=== PATIENT | female | born 1990 | race Caucasian/White ===

== ENCOUNTER 2020-03-05 02:13 | Outpatient (CLI) | payer MEDICAID, SELFPAY ==
[2020-03-05 10:59] LABS: ALT 27 U/L (14-59); AST 12 U/L (15-37); Albumin 4.5 g/dL (3.4-5.0); Alkaline Phosphatase 52 U/L (46-116); Anion Gap 9.2 mmol/L (3-11); BUN 15 mg/dL (7-18); Bilirubin, Total 0.5 mg/dL (0.2-1.0); CO2 26.8 mmol/L (21.0-32.0); CREATININE 0.79 mg/dL (0.55-1.02); Calcium 9.7 mg/dL (8.5-10.1); Chloride 102 mmol/L (98-107); Glucose 85 mg/dL (74-106); Potassium 4.3 mmol/L (3.5-5.1); Sodium 138 mmol/L (136-145); TSH (W/Ref FT4) 0.94 uIU/mL (0.36-3.74); Total Protein 7.9 g/dL (6.4-8.2)
[2020-03-08 06:09] LABS: Vitamin D 25 Total 33.8 ng/ml (30-100)
== END 2020-03-05 02:33 ==
PROVIDERS: PCP Family Medicine; Visit Provider Family Medicine
DX: E55.9 Vitamin D deficiency, unspecified (principal); G56.03 Carpal tunnel syndrome, bilateral upper limbs; F32.81 Premenstrual dysphoric disorder; M81.0 Age-related osteoporosis without current pathological fracture
CPT/HCPCS: 36415; 80053; 82306; 84443

== ENCOUNTER 2020-08-25 12:59 | Outpatient (REF) | payer MEDICAID, SELFPAY ==
--- NOTE | 2020-08-25 10:30 | PAPFT_PTH ---
PATIENT: Ree Moran LOC: [facility] U#:[id number] AGE/SX: 30/F ROOM: RE08/25/[address]: Jazlyn Herrera NP : 1990 BED: DIS: 08/25/2020 SPEC #: [id number] RECD: 08/25/20 13:17 STATUS: CHRISTIANO REGuerline #: [id number] NIKOS: 08/25/20 10:[address]: Jazlyn Herrera NP DEPT: [facility] Cytology RECD BY: Rola Zapata ENTERED: 08/25/20 13:18 SP TYPE: PAPFT OTHR DR: Josh Aguirre MD Tissues: 1 - CX/ENDOCX FOR PAP SMEARS Procedures: PAP THIN PREP/UVM Screening HPV DNA PROBE Comments: [id number] (CHLAMYDIA/GC)
[2020-08-26 13:58] LABS: Chlamydia Result Negative (Negative); GC Result Negative (Negative)
== END 2020-08-25 13:00 | disposition home or self-care (01) ==
LOC: LBN 12:59
PROVIDERS: PCP Family Medicine; Visit Provider Nurse Practitioner Women's Health
DX: Z11.3 Encounter for screening for infections with a predominantly sexual mode of transmission (principal); Z12.4 Encounter for screening for malignant neoplasm of cervix; Z11.51 Encounter for screening for human papillomavirus (HPV)
CPT/HCPCS: 87491; 87591; 88142; 87624

== ENCOUNTER 2020-09-23 10:07 | Outpatient (CLI) | payer MEDICAID, SELFPAY ==
--- NOTE | 2020-09-23 07:45 | DI.US_ITS ---
EXAM: US LOWER EXTREMITY VENOUS RT CLINICAL HISTORY: right calf pain, r/o DVT,M79.661 TECHNIQUE: Grayscale, color, and doppler imaging of the deep venous system of the right lower extrem ity was performed. COMPARISON: US ABDOMEN PELVIS ULTRASOUND from 12/15/2015 FINDINGS: There is no evidence of intraluminal thrombus and there is normal compression and augmentation demons trated within the common femoral veis, femoral veis, and popliteal vein. In the ipsilateral calf the interrogated veins also exhibit normal compression/ augmentation properti es. The ipsilateral saphenofemoral junction is patent. IMPRESSION: 1. No evidence of DVT in the right lower extremity. 2. DATA REPOSITORY:
== END 2020-09-23 10:27 ==
PROVIDERS: PCP Family Medicine; Visit Provider Physician Assistant
DX: M79.661 Pain in right lower leg (principal)
CPT/HCPCS: 93971

== ENCOUNTER 2021-01-07 08:53 | Outpatient (CLI) | payer MEDICAID, SELFPAY ==
[2021-01-08 13:23] LABS: COVID-19 RT-PCR UVMMC Result Negative (Negative)
== END 2021-01-07 08:54 | disposition home or self-care (01) ==
PROVIDERS: PCP Nurse Practitioner Family; Visit Provider Nurse Practitioner Family
DX: Z20.822 Contact with and (suspected) exposure to COVID-19 (principal)
CPT/HCPCS: U0003

== ENCOUNTER 2021-07-01 11:36 | Outpatient (CLI) | payer MEDICAID, SELFPAY ==
--- NOTE | 2021-07-01 11:30 | DI.US_ITS ---
Exam(s) US SOFT TISSUE HEAD OR NECK EXAM: US SOFT TISSUE HEAD OR NECK CLINICAL HISTORY: Swelling in right lower cheek worsening, oral infection, K12.2 cellulits. TECHNIQUE: Ultrasound was performed using standard protocol. COMPARISON: No exams were available for comparison FINDINGS: Sonographic assessment utilizing grayscale and color Doppler imaging was performed and targeted to th e area of clinical concern. No abscess is identified. A 9 millimeter reactive lymph node is noted a djacent to the mandible. Other cervical lymph nodes are noted which maintain a normal fatty hilum. IMPRESSION: No evidence of abscess or fluid collection. Reactive lymph nodes. DATA REPOSITORY:
== END 2021-07-01 11:56 ==
PROVIDERS: PCP Nurse Practitioner Family; Visit Provider Nurse Practitioner Family
DX: K12.2 Cellulitis and abscess of mouth (principal); R59.0 Localized enlarged lymph nodes
CPT/HCPCS: 76536

== ENCOUNTER 2021-08-03 15:43 | Outpatient (REF) | payer MEDICAID, SELFPAY ==
[2021-08-03 22:17] LABS: Bilirubin Negative (Negative); Blood Negative (Negative); Clarity Clear (Clear); Glucose Negative (Negative); Ketones Negative (Negative); Leukocyte Esterase Small (Negative); Nitrite Negative (Negative); Urobilinogen 0.2 EU/dL (Up TO 0.2)
[2021-08-03 22:24] LABS: RBC 0-2 HPF (0-2)
[2021-08-03 22:25] LABS: Bacteria Few HPF (Negative); C & S Indicated? No/Sq. Contamination; Casts Negative LPF (Negative); Crystals Negative HPF (Negative); Epithelial Cells Many HPF (Negative); Mucus Negative (Negative); Other Cells Negative (Negative)
== END 2021-08-03 15:44 | disposition home or self-care (01) ==
LOC: LBN 15:43
PROVIDERS: PCP Nurse Practitioner Family; Visit Provider Nurse Practitioner Family
DX: R31.9 Hematuria, unspecified (principal)
CPT/HCPCS: 81003; 81015

== ENCOUNTER 2021-08-04 17:19 | Outpatient (REF) | payer MEDICAID, SELFPAY ==
[2021-08-04 18:42] LABS: Bilirubin Negative (Negative); Blood Trace-intact (Negative); Clarity Clear (Clear); Glucose Negative (Negative); Ketones Negative (Negative); Leukocyte Esterase Trace (Negative); Nitrite Negative (Negative); Urobilinogen 0.2 EU/dL (Up TO 0.2); pH 6.5 (5-8)
[2021-08-04 18:51] LABS: Bacteria Negative HPF (Negative); C & S Indicated? Yes; Casts Negative LPF (Negative); Crystals Negative HPF (Negative); Epithelial Cells Negative HPF (Negative); Mucus Negative (Negative); Other Cells Negative (Negative); RBC Negative HPF (0-2); WBC Negative HPF (0-5)
== END 2021-08-04 17:20 | disposition home or self-care (01) ==
LOC: LBN 17:19
PROVIDERS: PCP Nurse Practitioner Family; Visit Provider Nurse Practitioner Family
DX: R39.9 Unspecified symptoms and signs involving the genitourinary system (principal); R30.0 Dysuria
CPT/HCPCS: 87491; 87591; 81003; 81015; 87086; 87480; 87510; 87660

== ENCOUNTER → 2021-12-09 00:38 | Outpatient (CLI) | payer MEDICAID, SELFPAY | PROVIDERS: PCP Nurse Practitioner Family; Visit Provider Nurse Practitioner Family ==

== ENCOUNTER 2021-12-26 11:20 | Emergency (ER) | payer MEDICAID, SELFPAY ==
[2021-12-26 11:38] VITALS: BP 145/89; PULSE 76; RESP 16; TEMP 36.7; O2SAT 99
[2021-12-26 12:08] LABS: Bilirubin Negative (Negative); Blood Trace-intact (Negative); Clarity Clear (Clear); Glucose Negative (Negative); Ketones Negative (Negative); Leukocyte Esterase Negative (Negative); Nitrite Negative (Negative); Urobilinogen 0.2 EU/dL (Up TO 0.2)
[2021-12-26 12:15] LABS: Bacteria Rare HPF (Negative); C & S Indicated? No; Casts Negative LPF (Negative); Crystals Negative HPF (Negative); Epithelial Cells Moderate HPF (Negative); Mucus Negative (Negative); RBC 0-2 HPF (0-2); WBC Negative HPF (0-5)
--- NOTE | 2021-12-26 12:48 | W.ED.GENAD ---
Discharge Plan Disposition Patient Disposition: HOME Condition: Stable Discharge Details Clinical Impression: Bilateral nephrolithiasis Primary Care Provider: Serafin Guidry ED Provider: Shaniqua Mishra Home Meds and New Rx's Prescriptions: Continued magnesium oxide 400 MG capsule 400 mg PO DAILY cholecalciferol (vitamin D3) [Vitamin D3] 2,000 UNIT capsule 2,000 unit PO DAILY Label Comments: 07-31-17 pt reports that she is no longer taking this med. hb albuterol sulfate [ProAir HFA] 8.5 GM HFA aerosol inhaler 2 puff Inhalation Q4H PRN Qty: 1 0RF fluoxetine 10 mg capsule 10 mg PO QAM Qty: 28 5RF Rx Instructions: take for 14 days PRIOR TO FIRST DAY OF MENSES every month. (14d monthly cycle for PMDD) No Action tamsulosin [Flomax] 0.4 mg capsule 0.4 mg PO DAILY 20 Days Qty: 20 0RF Rx Instructions: stop after passage of stone Discharge Instructions Instructions: Kidney Stones (ED) Additional Instructions: Your ultrasound shows a small, nonobstructing kidney stones once again. Please continue with your magnesium and increase hydration as previously directed by urology. You may continue with Tylenol and/or ibuprofen as needed for discomfort. Please take the Flomax to help with the passage of stone. You may stop this medication once the stone has passed. You are given today's dose) to be due tomorrow. If you develop fever/chills, increased pain, inability stay hydrated please seek care urgently once again. Otherwise, please reach out to urology team in [place] regarding follow up. Referrals: Serafin Guidry, SPECIFICATION WRITER [Primary Care Provider] - Discharge Data Discharge Date/Time-TO BE ENTERED AT DEPARTURE: 12/26/21 16:20 Medical Decision Making Patient is a pleasant 31-year-old female presenting today with chief complaint of dysuria and flank pain. Indicates bilateral flank as areas of discomfort. She reports that this feels similar as she has had multiple UTIs as well as nephrolithiasis historically. States this progressively been worsening over the past 2 days. Patient does try to drink a large amount of water and takes daily magnesium to help prevent stones. She denies any fevers or chills. States that the pain can radiate down towards midline groin. States that she has some nausea but denies any vomiting. No change in bowel habits, normal bowel movement this morning. Patient has had surgical excision of large stone back in 2017. She denies any vaginal discharge. LMP 3 weeks ago. On exam, patient appears uncomfortable. She has bilateral flank discomfort with percussion. Abdomen is benign. Patient is hemodynamically stable. Urinalysis significant for blood in the urine. No indication of infection at this time. Concerned at this time likely for stone. Will obtain renal ultrasound, baseline blood work to evaluate for potential SERINA. Labs reviewed. No leukocytosis. Stable H&H. CMP without significant abnormality, creatinine within normal range. Ultrasound reviewed by radiologist: FINDINGS: Renal size in cm: Right: 12.5 x 3.8 x 5 cm left: 11.6 x 5.1 x 4.7 cm Echogenicity: Normal Hydronephrosis: No Cyst or mass: No Nephrolithiasis: Multiple small echogenic foci bilaterally which may represent artifact versus small stones. Bladder:Normal .? Both ureteral jets were visualized. Prevoid vol: 47 cc Postvoid vol:0 cc IMPRESSION: Bilateral small echogenic renal foci, nonobstructing stones versus artifacts. Labs reviewed. No other significant abnormalities. Discussed the findings with the patient. She does have longstanding plan for her to f/u with urology at [facility]. Encouarged hydration. Pain is improved. She and I discussed strict return precautions. Will have her on Flomax to encourage passage of stone. She is on magnesium supplementation based on previous recommendations from urology. She will continue with this. All of her questions and concerns were addressed, she is in agreement with this plan. [facility] General Date/Time Provider Initiated Documentation: 12/26/21 12:48. Limitations to Documentation: no limitations. Information obtained by: patient and RN notes reviewed. History of Present Illness 31 year old F presents to the emergency department with the chief complaint of dysurea, flank pain, described as moderate and similar to prior episodes, with intensity rated at 6. Quality is described as aching, and is localized to the back and pelvis. Patient reports no radiation. Patient started experiencing this day(s) and it has been constant. No relieving factors improve symptom(s), No exacerbating factors reported . Patient notes no other symptoms.. Patient did receive the following treatments prior to arrival, none Related Data Home Medications Medication Instructions Recorded Confirmed magnesium oxide 400 mg PO DAILY 10/12/16 12/26/21 cholecalciferol (vitamin D3) 50 2,000 unit PO DAILY 07/06/17 12/26/21 mcg (2,000 unit) capsule (Vitamin D3) albuterol sulfate 90 mcg/actuation 2 puff inhalation Q4H PRN ##1 10/01/17 12/26/21 aerosol inhaler (ProAir HFA) fluoxetine 10 mg capsule 10 mg PO QAM #28 caps 02/23/21 12/26/21 tamsulosin 0.4 mg capsule (Flomax) 0.4 mg PO DAILY 20 days #20 caps 12/30/21 Previous Rx's Medication Instructions Recorded albuterol sulfate 90 mcg/actuation 2 puff inhalation Q4H PRN ##1 10/01/17 aerosol inhaler (ProAir HFA) fluoxetine 10 mg capsule 10 mg PO QAM #28 caps 02/23/21 tamsulosin 0.4 mg capsule (Flomax) 0.4 mg PO DAILY 20 days #20 caps 12/30/21 Allergies Allergy/AdvReac Type Severity Reaction Status Date / Time latex Allergy Severe Hives Verified 12/26/21 11:41 Penicillins Allergy Severe Anaphylaxsi Verified 12/26/21 11:41 s shellfish derived Allergy Severe Anaphylaxsi Verified 12/26/21 11:41 s Sulfa (Sulfonamide Allergy Severe Hives Verified 12/26/21 11:41 Antibiotics) nitrofurantoin Allergy Intermediate Skin Rash, Verified 12/26/21 11:41 anxiety, dry mouth General Stated Complaint: Urinary REY: 4 Review of Systems Constitutional Constitutional: Reports as per HPI, Denies chills and Denies fever(s) Cardiovascular Cardiovascular: Denies chest pain Respiratory Respiratory: Denies cough Gastrointestinal Gastrointestinal: Denies abdominal pain, Denies change in bowel habits, Denies nausea and Denies vomiting Genitourinary Genitourinary: Reports as per HPI Musculoskeletal Musculoskeletal: Reports as per HPI Integumentary/Breasts Skin/Breast: Reports as per HPI and Denies rash PFSH All Active Problems (Updated 12/26/21 @ 15:37 by CAROLINA Villalta) Bilateral nephrolithiasis (Acute) Bilateral carpal tunnel syndrome (Acute) PMDD (premenstrual dysphoric disorder) (Acute) H/O surgical procedure (Chronic) a. appendectomy b. colonoscopy c. endometrial biopsy d. tonsillectomy e. EGD - with MAC Obstructive sleep apnea (Chronic) Dx 2017 - [facility] [place] Used CPAP for approx. 1 year - has not used for 1 yr. 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 Nl testosterone and 17-OH-P4. 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 Benign mass on adrenal. Neg pheochromocytoma w/u. 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 Ventura Pruritic condition (Chronic 05/21/14) Vitamin D deficiency (Chronic 07/05/17) Adrenal benign tumor (Chronic) Renal colic (Chronic) Medical History Adrenal benign tumor [address] scan during w/u for elevated DHEAs. Had nl endo w/u at [facility] [place]. Expectant management. Anxiety Panic attacks. Somatic complaints. Dermatitis (07/17/16) Drug-induced nausea and vomiting Dysmenorrhea 2014 Nl pelvic u/s. Nl endometrial bx. Kidney stone on right side Pelvic pain 2014 Episodic. GI w/u neg. 2014 [employer] w/u neg. 11/2015 recurrence of sx after 08/2015. Surgical History Appendectomy Colonoscopy - MAC 06/17/14 [facility] [place] EGD - MAC 06/17/14- [facility] [place] Endometrial Biopsy 08/18/14 [facility] History of appendectomy History of esophagogastroduodenoscopy History of gynecological procedure Status post tonsillectomy Surgery 08/25-kidney stone Tonsillectomy Family History Mother Depression Hyperlipidemia Father Diabetes Essential hypertension Heart disease Hyperlipidemia Maternal Grandfather Diabetes Hyperlipidemia Thyroid cancer Prostate cancer Liver cancer Paternal Grandfather Heart disease Asthma Maternal Grandmother , 73 Essential hypertension Hyperlipidemia Myeloma Bone cancer Paternal Grandmother , 79 Essential hypertension Myeloma Bone cancer Brother Substance abuse Son No problems noted. Son No problems noted. Daughter No problems noted. Social History (Updated 11/28/21 @ 13:55 by April Yan) Smoking/Tobacco Use Status: Never Second Hand Exposure: No Smoking risk assessment performed?: Yes Alcohol Intake: never Drug use: Never Counseling given: No Counseling provided: none Caregiver/Support person: No Household members: spouse and children Housing: house Communication Needs: None Do you need help understanding health information?: Never Pets and animals: Yes Pets and animals: other Details: Chickens Sexually active: Yes Do you think of yourself as: straight/heterosexual Current gender identity: female What is your relationship status?: How often do you talk on the phone with friends or family?: three or more times per week How often do you get together with friends or relatives?: twice per week How often do you attend zoroastrianism or congregation services?: 1-3 times per year Do you belong to any clubs or organized social groups?: no Panel score (0-1 are the most socially isolated patients): 2 What type of physical activity do you participate in: running Duration: 15-30 minutes/day Frequency: 3-4 times per week Vianney/Synagogue: No preference Special vianney needs: No Seatbelt use: always Helmet use: Yes Helmet use: always Drive intox or ride w/intox funeral driver: No Do you feel safe at home: Yes Do you feel safe in your relationship?: Yes Female Reproductive History Menstrual control method: other (partner with vasectomy) History History 4 Para 3 Hx # Term Pregnancies Multiple births Hx # Pregnancies Ectopic pregnancies AB induced Hx Number of Living Children AB spontaneous 1 Exam Const General: cooperative, healthy appearing, uncomfortable, no acute distress, well developed and well groomed Nutritional Appearance: average body habitus and well nourished Orientation: alert and awake Resp Effort & Inspection: normal respiratory effort and no respiratory distress Auscultation: clear to auscultation bilaterally, no rales, no rhonchi and no wheezes Cardio Rate: regular rate Rhythm: regular rhythm Heart Sounds: S1 normal and S2 normal GI Inspection: normal to inspection Palpation: soft, no hepatosplenomegaly, not firm, no guarding, not rigid and nontender Back/Spine/Pelvis Back: CVA tenderness (bilaterally) Skin General skin exam: no rashes or lesions noted Trauma: no lacerations or abrasions Neuro General: patient alert and patient awake Cognition: normal cognition Speech: speech normal Gait: normal gait Psych Appearance: grossly normal and well kempt Mental Status: mental status grossly normal Speech and Movement: speech and movement normal Course Vital Signs Vital signs: Vital Signs Temperature 36.7 C 12/26/21 11:38 Pulse 76 12/26/21 11:38 Respiratory Rate 16 12/26/21 11:38 Blood Pressure 145/89 H 12/26/21 11:38 Pulse Oximetry 99 12/26/21 11:38 Temperature 36.7 C 12/26/21 11:38 Temperature Source Temporal Artery Scan 12/26/21 11:38 Pulse 76 12/26/21 11:38 Respiratory Rate 16 12/26/21 11:38 Respiratory Effort 12/26/21 11:40 Blood Pressure 145/89 H 12/26/21 11:38 Blood Pressure Position Sitting 12/26/21 11:38 Pulse Oximetry 99 12/26/21 11:38 Oxygen Delivery Method Room Air 12/26/21 11:38 Oxygen Flow Rate 0 12/26/21 11:38 Pain Level 6 12/26/21 11:38 Lab/Test Results Lab/Test Results: Laboratory Tests Range/Units 12/26/21 12:00 Urine Color (Yellow) Yellow Urine Clarity (Clear) Clear Urine pH (5-8) 7.0 Ur Specific [place] (1.005-1.025) 1.020 Urine Protein (Negative) mg/dL Negative Urine Ketones (Negative) mg/dL Negative Urine Blood (Negative) Trace-intact H Urine Nitrite (Negative) Negative Urine Bilirubin (Negative) Negative Urine Urobilinogen (Up TO 0.2) EU/dL 0.2 Ur Leukocyte Esterase (Negative) Negative Urine RBC (0-2) HPF 0-2 Urine WBC (0-5) HPF Negative Ur Epithelial Cells (Negative) HPF Moderate Urine Crystals (Negative) HPF Negative Urine Bacteria (Negative) HPF Rare Urine Casts (Negative) LPF Negative Urine Mucus (Negative) Negative Ur Culture Indicated? No Urine Glucose (Negative) mg/dL Negative POC- Test(urine) Negative
--- NOTE | 2021-12-26 13:15 | DI.US_ITS ---
Exam(s) US RENAL EXAM: US RENAL CLINICAL HISTORY: flank pain, dysurea, hematuria. TECHNIQUE: Mckenzie scale, color and spectral Doppler were used. COMPARISON: CT ABD PELVIS WO CONTRAST from 04/27/2017 FINDINGS: Renal size in cm: Right: 12.5 x 3.8 x 5 cm left: 11.6 x 5.1 x 4.7 cm Echogenicity: Normal Hydronephrosis: No Cyst or mass: No Nephrolithiasis: Multiple small echogenic foci bilaterally which may represent artifact versus small stones. Bladder:Normal . Both ureteral jets were visualized. Prevoid vol: 47 cc Postvoid vol:0 cc IMPRESSION: Bilateral small echogenic renal foci, nonobstructing stones versus artifacts. DATA REPOSITORY:
[2021-12-26] MEDS: Ketorolac 15 MG/ML VIAL IVP (14:00)
[2021-12-26] MEDS: Normal Saline 1,000 ML 1000 ML IV (14:00)
[2021-12-26 14:10] LABS: Abs Immature Grans 0.02 10^3/uL (0.0-0.06); Absolute Basophil Count 0.08 10^3/uL (0.0-0.2); Absolute Eosinophil Count 0.09 10^3/uL (0.0-0.7); Absolute Lymphocyte Count 2.26 10^3/uL (1.2-3.4); Absolute Monocyte Count 0.68 10^3/uL (0.1-0.8); Absolute Neutrophil Count 4.87 10^3/uL (1.2-6.7); Eosinophils % 1.1; HCT 38.9 % (36.0-46.0); HGB 13.2 g/dL (11.2-15.7); Immature Grans % 0.3; Lymphocytes % 28.3; MCH 32.2 pg (27.0-33.0); MCHC 33.9 % (32.0-36.0); MCV 95 fL (80-95); Monocytes % 8.5; Neutrophils % 60.8; Platelet Count 317 10^3/uL (130-400); RDW 11.9 % (11.7-14.6); RDW-SD 41.8 fL
[2021-12-26 14:27] LABS: ALT 23 U/L (14-59); AST 13 U/L (15-37); Alkaline Phosphatase 63 U/L (46-116); Anion Gap 7.9 mmol/L (3-11); BUN 11 mg/dL (7-18); Bilirubin, Total 0.6 mg/dL (0.2-1.0); CO2 25.1 mmol/L (21.0-32.0); CREATININE 0.8 mg/dL (0.55-1.02); Calcium 8.9 mg/dL (8.5-10.1); Chloride 104 mmol/L (98-107); Glucose 82 mg/dL (74-106); Potassium 3.5 mmol/L (3.5-5.1); Sodium 137 mmol/L (136-145); Total Protein 7.5 g/dL (6.4-8.2)
[2021-12-26] MEDS: Tamsulosin 0.4 MG CAPCR PO (15:44)
== END 2021-12-26 16:20 | disposition home or self-care (01) ==
PROVIDERS: Emergency Provider Physician Assistant; PCP Nurse Practitioner Family
DX: N20.0 Calculus of kidney (principal); Z87.442 Personal history of urinary calculi
CPT/HCPCS: 36415; 76770; 80053; 81025; 96361; 96374; 99284; 81003; 81015; 85025; 99283; J1885

== ENCOUNTER 2022-05-02 11:04 | Outpatient (CLI) | payer MEDICAID, SELFPAY ==
--- NOTE | 2022-05-02 11:00 | RT.EKG_ITS ---
APPROVED REPORT Exam: Resting ECG Reason for Exam: heart palpatations Patient Location: O HR:66 bpm ECG Measurements Heart Rate 66 AXIS CA 133 P 45 QRSd 90 QRS 55 QT 396 T 12 QTc 415 Conclusion Sinus rhythm...normal P axis, V-rate 50- 99 Normal Electrocardiogram
== END 2022-05-02 11:05 | disposition home or self-care (01) ==
LOC: DI.CM 11:10
PROVIDERS: PCP Nurse Practitioner Family; Visit Provider Nurse Practitioner Family
DX: R00.2 Palpitations (principal)
CPT/HCPCS: 93010

== ENCOUNTER 2022-05-02 13:39 | Outpatient (CLI) | payer MEDICAID, SELFPAY ==
[2022-05-02 14:41] LABS: Calculated LDL 150 mg/dL (<100); Cholesterol 210 mg/dL (<200); HDL Cholesterol 44 mg/dL (40-60); Magnesium 1.7 mg/dL (1.8-2.4); Triglyceride 83 mg/dL (<150)
[2022-05-02 17:00] LABS: Vitamin B12 652 pg/mL (193-986)
[2022-05-02 17:39] LABS: Vitamin D 25 Total 19.8 ng/mL (30-100)
== END 2022-05-02 13:40 | disposition home or self-care (01) ==
LOC: LBO 13:40
PROVIDERS: Nurse Practitioner Family; PCP Nurse Practitioner Family; Visit Provider Nurse Practitioner Family
DX: E55.9 Vitamin D deficiency, unspecified (principal); E27.8 Other specified disorders of adrenal gland; Z13.220 Encounter for screening for lipoid disorders; R00.2 Palpitations
CPT/HCPCS: 36415; 80061; 82306; 82533; 82088; 82607; 83735

== ENCOUNTER 2022-05-19 03:04 | Emergency (ER) | payer MEDICAID, SELFPAY ==
[2022-05-19] VITALS (23 sets, daily range): BP systolic 118–138; BP diastolic 71–82; PULSE 66–93; RESP 11–30; TEMP 37; O2SAT 100
--- NOTE | 2022-05-19 03:00 | RT.EKG_ITS ---
APPROVED REPORT Exam: Resting ECG Reason for Exam: palpitations Patient Location: E HR:93 bpm ECG Measurements Heart Rate 93 AXIS TN 124 P 54 QRSd 87 QRS 52 QT 369 T -7 QTc 460 Conclusion Sinus rhythm...normal P axis, V-rate 60- 99 PHysician: no stemi, unchanged from prior ekg on 05/02/22
--- NOTE | 2022-05-19 03:19 | W.ED.GENAD ---
Discharge Plan Disposition Patient Disposition: Home Condition: Good Discharge Details Chief Complaint: Chest Pain Clinical Impression: Acute hypokalemia, Neck pain on left side Primary Care Provider: Serafin Guidry ED Provider: Flakito Oneill Home Meds and New Rx's Prescriptions: No Action magnesium oxide 400 MG capsule 400 mg PO DAILY cholecalciferol (vitamin D3) [Vitamin D3] 2,000 UNIT capsule 2,000 unit PO DAILY Label Comments: 07-31-17 pt reports that she is no longer taking this med. hb albuterol sulfate [ProAir HFA] 8.5 GM HFA aerosol inhaler 2 puff Inhalation Q4H PRN Qty: 1 0RF fluoxetine 10 mg capsule 10 mg PO QAM Qty: 42 4RF Rx Instructions: take for 14 days PRIOR TO FIRST DAY OF MENSES every month. (14d monthly cycle for PMDD) #42 should be a 90 day supply Discharge Instructions Instructions: Hypokalemia (ED) Additional Instructions: At this time your work-up has returned very reassuring. There is no evidence of significant vascular or heart disease. Your electrolytes do show low potassium. Please stick to a diet that is high in potassium like legumes, bananas, and avocados. Please eat a high-fiber diet to help with your loose stool, and take a daily probiotic as well. If you notice any worsening of your symptoms, or any new symptoms such as vomiting, diarrhea, fever, chills, shortness of breath, chest pain, numbness, weakness, or fainting , please return immediately to the emergency department for reevaluation. Please follow up with your primary care provider as soon as possible for reassessment and reevaluation. As always, it was a pleasure participating in your medical care today. Referrals: Serafin Guidry, FAMILY LAW SPECIALIST [Primary Care Provider] - Medical Decision Making This is a 31-year-old female with a past medical history of an adrenal tumor, magnesium deficiency for which she takes supplementation, who presents today for a few different complaints. Patient states that for the last 3 weeks she has had intermittent palpitations. No syncope, or headache. No chest pain or shortness of breath, they have just been intermittent, and not associated with any new foods, medications, or other things. And then yesterday she developed left-sided neck and arm pain which she describes as a tingling burning electric sensation. Is also present in her left chest. She admits to some nausea and some mild diarrhea but she denies any other component. This evening the pain came back at around 10 PM and is continued throughout the night. She does admit to significant social stressors as her close family member was just life flighted down to [place]. No other complaints at this time. No other modifying factors. Exam demonstrates no carotid bruits, no heart murmurs, radial pulses +2 bilaterally. No neurovascular compromise clinically. Uncertain as to what the exact cause of the patient's symptoms may be at this stage, but electrolyte abnormality, cardiac etiology, no vascular abnormality like vertebral artery dissection or PE is on the differential. We will monitor and evaluate for these etiologies and reassess. 4:28 AM Laboratory work-up has returned, white count stable, electrolytes normal aside for potassium being low at 3.0. This may be related to her diarrhea. D-dimer is elevated at 750. This slightly increases concern for potential vascular component. We will get CTA of the neck and chest. Thyroid function normal, troponin normal, COVID flu and RSV negative. 6:20 AM CTA of the head neck and chest is negative for acute process, dissection of the vertebral artery, or PE. On reassessment patient is feeling better. She is concerned that most of her symptoms are attributed to stress. She feels comfortable and like to go home. Recommend high potassium diet at home, discussed the importance of probiotics. Discussed red flags which to return. At this time no evidence of acute life-threatening etiology requiring further intervention. I have extensively reviewed the treatment plan and discharge instructions with the patient and their family. I have addressed all patient concerns at this time. The patient and family was made aware of what symptoms to monitor for that would warrant a return to the emergency department. Discussed the plan with the patient and family, they demonstrate verbal understanding and agreement with our assessment and plan at this time. The documentation in this chart was dictated using [employer]opt[employer] dictation software. Please excuse any dictation errors. FINDINGS: ANTERIOR CIRCULATION: Right internal carotid artery: Intracranial segment is patent with no significant stenosis or occlusion. No aneurysm. Right middle cerebral artery: No occlusion or significant stenosis. No aneurysm. Right anterior cerebral artery: No occlusion or significant stenosis. No aneurysm. Left internal carotid artery: Intracranial segment is patent with no significant stenosis. No aneurysm. Left middle cerebral artery: No occlusion or significant stenosis. No aneurysm. Left anterior cerebral artery: No occlusion or significant stenosis. No aneurysm. POSTERIOR CIRCULATION: Right vertebral artery: No occlusion or significant stenosis. No aneurysm. Left vertebral artery: No occlusion or significant stenosis. No aneurysm. Basilar artery: No occlusion or significant stenosis. No aneurysm. Right posterior cerebral artery: No occlusion or significant stenosis. No aneurysm. Left posterior cerebral artery: No occlusion or significant stenosis. No aneurysm. Transverse sinuses: Relatively hypoplastic transverse sinus on the left which can be a normal variant. HEAD: Brain: There is maintenance of brain volume without acute hemorrhage or acute territorial infarct. No enhancing lesions in the brain. Venous contamination without venous thrombus. Cerebral ventricles: Normal. No ventriculomegaly. Bones/joints: Unremarkable. No acute fracture. Paranasal sinuses: Visualized sinuses are normal. No fluid levels. Mastoid air cells: Visualized mastoids are normal. No mastoid effusion. Soft tissues: Unremarkable. IMPRESSION: No acute intracranial abnormality. No large vessel occlusion. FINDINGS: Right common carotid artery: No stenosis. No dissection or occlusion. Right internal carotid artery: No stenosis of the extracranial segment. No dissection or occlusion. Right external carotid artery: No occlusion or stenosis of the origin. Left common carotid artery: No stenosis. No dissection or occlusion. Left internal carotid artery: No stenosis of the extracranial segment. No dissection or occlusion. Left external carotid artery: No occlusion or stenosis of the origin. Right vertebral artery: No stenosis. No dissection or occlusion. Left vertebral artery: No stenosis. No dissection or occlusion. Thyroid: Heterogeneous right thyroid lobe with a dominant low-density 20 mm lesion that can be followed non emergently with ultrasound. Lymph nodes: No lymphadenopathy. Soft tissues: Normal. No significant soft tissue swelling. Bones/joints: No acute fracture. Loss of the lordosis suggests spasm. Esophagus: Patulous esophagus. IMPRESSION: No significant vascular abnormality. Thyroid lesions as above. FINDINGS: Pulmonary arteries: No filling defects in the central, lobar, or proximal segmental pulmonary arteries to suggest pulmonary emboli. Normal caliber main pulmonary artery. Aorta: Normal in caliber. Though evaluation of the ascending aorta is limited by cardiac pulsation artifact, there are no findings to suggest aortic dissection. Lungs: There are minimal dependent hypoventilatory changes in both lower lobes. The lungs are otherwise clear and well aerated, without consolidation or mass. The trachea and central main airways are patent and normal in caliber. Pleural spaces: No pleural effusion or pneumothorax. Heart: Heart size is normal. No coronary artery calcifications. No pericardial effusion.Small amount of residual thymic tissue in the anterior/superior mediastinum, not unexpected in a young patient. Lymph nodes: Unremarkable. No pathologically enlarged mediastinal, hilar, or axillary lymph nodes Bones/joints: No suspicious osseous lesions. Soft tissues: Unremarkable. Other findings: Tiny hiatal hernia. IMPRESSION: No acute abnormality in the chest. No evidence of pulmonary emboli. Thank you for allowing us to participate in the care of your patient. Dictated and Authenticated by: Radha Gonzalez MD 05/19/2022 6:12 AM Eastern Time ([place] & [place]) Sign Out No HPI General Date/Time Provider Initiated Documentation: 05/19/22 03:07. HPI Narrative: This is a 31-year-old female with a past medical history of an adrenal tumor, magnesium deficiency for which she takes supplementation, who presents today for a few different complaints. Patient states that for the last 3 weeks she has had intermittent palpitations. No syncope, or headache. No chest pain or shortness of breath, they have just been intermittent, and not associated with any new foods, medications, or other things. And then yesterday she developed left-sided neck and arm pain which she describes as a tingling burning electric sensation. Is also present in her left chest. She admits to some nausea and some mild diarrhea but she denies any other component. This evening the pain came back at around 10 PM and is continued throughout the night. She does admit to significant social stressors as her close family member was just life flighted down to [place]. No other complaints at this time. No other modifying factors. Related Data Home Medications Medication Instructions Recorded Confirmed magnesium oxide 400 mg PO DAILY 10/12/16 05/02/22 cholecalciferol (vitamin D3) 50 2,000 unit PO DAILY 07/06/17 05/02/22 mcg (2,000 unit) capsule (Vitamin D3) albuterol sulfate 90 mcg/actuation 2 puff inhalation Q4H PRN ##1 10/01/17 05/02/22 aerosol inhaler (ProAir HFA) fluoxetine 10 mg capsule 10 mg PO QAM #42 caps 04/03/22 05/02/22 Previous Rx's Medication Instructions Recorded albuterol sulfate 90 mcg/actuation 2 puff inhalation Q4H PRN ##1 10/01/17 aerosol inhaler (ProAir HFA) fluoxetine 10 mg capsule 10 mg PO QAM #42 caps 04/03/22 Allergies Allergy/AdvReac Type Severity Reaction Status Date / Time latex Allergy Severe Hives Verified 05/02/22 11:09 Penicillins Allergy Severe Anaphylaxsi Verified 05/02/22 11:09 s shellfish derived Allergy Severe Anaphylaxsi Verified 05/02/22 11:09 s Sulfa (Sulfonamide Allergy Severe Hives Verified 05/02/22 11:09 Antibiotics) nitrofurantoin Allergy Intermediate Skin Rash, Verified 05/02/22 11:09 anxiety, dry mouth General Stated Complaint: Chest Pain REY: 3 Review of Systems All systems reviewed & are unremarkable except as noted in HPI and below PFSH All Active Problems (Updated 05/19/22 @ 06:22 by Flakito Oneill, ) Acute hypokalemia (Acute) Neck pain on left side (Acute) Impacted cerumen, right ear (Acute) Bilateral carpal tunnel syndrome (Acute) PMDD (premenstrual dysphoric disorder) (Acute) H/O surgical procedure (Chronic) a. appendectomy b. colonoscopy c. endometrial biopsy d. tonsillectomy e. EGD - with [facility] Obstructive sleep apnea (Chronic) Dx 2017 - [facility] [place] Used CPAP for approx. 1 year - has not used for 1 yr. 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 Nl testosterone and 17-OH-P4. 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 Benign mass on adrenal. Neg pheochromocytoma w/u. 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 [place] Pruritic condition (Chronic 05/21/14) Vitamin D deficiency (Chronic 07/05/17) Adrenal benign tumor (Chronic) Renal colic (Chronic) Medical History Adrenal benign tumor [address] scan during w/u for elevated DHEAs. Had nl endo w/u at [facility] [place]. Expectant management. Anxiety Panic attacks. Somatic complaints. Dermatitis (07/17/16) Drug-induced nausea and vomiting Dysmenorrhea 2014 Nl pelvic u/s. Nl endometrial bx. Kidney stone on right side Pelvic pain 2013 Episodic. GI w/u neg. 2014 [place] w/u neg. 11/2015 recurrence of sx after 08/2015. Surgical History Appendectomy Colonoscopy - [facility] 06/17/14 [facility] [place] EGD - MAC 06/17/14- [facility] [place] Endometrial Biopsy 08/18/14 [facility] History of appendectomy History of esophagogastroduodenoscopy History of gynecological procedure Status post tonsillectomy Surgery 08/25-kidney stone Tonsillectomy Family History Mother Depression Hyperlipidemia Father Diabetes Essential hypertension Heart disease Hyperlipidemia Maternal Grandfather Diabetes Hyperlipidemia Thyroid cancer Prostate cancer Liver cancer Paternal Grandfather Heart disease Asthma Maternal Grandmother , 73 Essential hypertension Hyperlipidemia Myeloma Bone cancer Paternal Grandmother , 79 Essential hypertension Myeloma Bone cancer Brother Substance abuse Son No problems noted. Son No problems noted. Daughter No problems noted. Social History Smoking/Tobacco Use Status: Never Second Hand Exposure: No Smoking risk assessment performed?: Yes Alcohol Intake: never Drug use: Never Substance use type: does not use Counseling given: No Counseling provided: none Caregiver/Support person: No Household members: spouse and children Housing: house Communication Needs: None Do you need help understanding health information?: Never Pets and animals: Yes Pets and animals: other Details: Chickens Sexually active: Yes Do you think of yourself as: straight/heterosexual Current gender identity: female What is your relationship status?: How often do you talk on the phone with friends or family?: three or more times per week How often do you get together with friends or relatives?: twice per week How often do you attend jewish or gnosticism services?: 1-3 times per year Do you belong to any clubs or organized social groups?: no Panel score (0-1 are the most socially isolated patients): 2 What type of physical activity do you participate in: running Duration: 15-30 minutes/day Frequency: 3-4 times per week Vianney/Yazdanism: No preference Special vianney needs: No Seatbelt use: always Helmet use: Yes Helmet use: always Drive 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 3.ENT: Atraumatic external nose and ears. Moist MM. Neck: Symmetric, trachea midline, No thyromegaly. 4.CVS: +S1/S2, No murmurs or gallops. Peripheral pulses 2+ and equal in all extremities. Brisk capillary refill in all extremities. 5.RESP: Unlabored respiratory effort. Clear to auscultation bilaterally. No wheezes rales or rhonchi 6.GI: Soft, Nontender/Nondistended, No hepatosplenomegaly. No guarding or rebound. 7.MSK: Normocephalic/Atraumatic, Extremities w/o deformity or ttp No cyanosis or clubbing, Normal movement of all extremities 8.Skin: Warm, Dry. No rashes or lesions. 9.Neuro: salon sales consultant II-XII grossly intact. Sensation grossly intact, no focal neurologic deficits. 10.Psych: (AAO) x3. Appropriate mood and affect Course Vital Signs Vital signs: Vital Signs Temperature 37.0 C 05/19/22 03:09 Pulse 91 H 05/19/22 03:09 Respiratory Rate 18 05/19/22 03:09 Pulse Oximetry 100 05/19/22 03:09 Temperature 37.0 C 05/19/22 03:09 Temperature Source Tympanic 05/19/22 03:09 Pulse 91 H 05/19/22 03:09 Respiratory Rate 18 05/19/22 03:09 Respiratory Effort Non-Labored 05/19/22 03:16 Blood Pressure Position Supine 05/19/22 03:09 Pulse Oximetry 100 05/19/22 03:09 Oxygen Delivery Method Room Air 05/19/22 03:09 Oxygen Flow Rate 0 05/19/22 03:09 Pain Level 7 05/19/22 03:09
[2022-05-19 03:27] LABS: Abs Immature Grans 0.02 10^3/uL (0.0-0.06); Absolute Basophil Count 0.07 10^3/uL (0.0-0.2); Absolute Eosinophil Count 0.34 10^3/uL (0.0-0.7); Absolute Lymphocyte Count 2.77 10^3/uL (1.2-3.4); Absolute Monocyte Count 0.93 10^3/uL (0.1-0.8); Basophils % 0.8; Eosinophils % 3.9; HCT 40.1 % (36.0-46.0); HGB 13.8 g/dL (11.2-15.7); Immature Grans % 0.2; Lymphocytes % 31.7; MCH 32.3 pg (27.0-33.0); MCHC 34.4 % (32.0-36.0); MCV 94 fL (80-95); MPV 10.1 fL (8.0-11.0); Monocytes % 10.7; Neutrophils % 52.7; Platelet Count 354 10^3/uL (130-400); RBC 4.27 10^6/uL (3.93-5.22); RDW-SD 41.8 fL; WBC 8.73 10^3/uL (4.4-10.8)
[2022-05-19] MEDS: Normal Saline 1,000 ML 1000 ML IV (03:33)
[2022-05-19] MEDS: Ketorolac 15 MG/ML VIAL IVP ×2 (03:34→06:19)
[2022-05-19 03:53] LABS: ALT 18 U/L (14-59); AST 12 U/L (15-37); Albumin 4.1 g/dL (3.4-5.0); Alkaline Phosphatase 62 U/L (46-116); Anion Gap 9.9 mmol/L (3-11); BUN 10 mg/dL (7-18); Bilirubin, Total 0.8 mg/dL (0.2-1.0); CO2 26.1 mmol/L (21.0-32.0); CREATININE 0.9 mg/dL (0.55-1.02); Calcium 9.1 mg/dL (8.5-10.1); Chloride 101 mmol/L (98-107); Estimated GFR 87.11 (mL/min/1.73m2); Glucose 104 mg/dL (74-106); Magnesium 1.9 mg/dL (1.8-2.4); Sodium 137 mmol/L (136-145); TSH (W/Ref FT4) 1.34 uIU/mL (0.36-3.74); Total Protein 7.7 g/dL (6.4-8.2); Troponin I < 50 ng/L (<or=60)
--- NOTE | 2022-05-19 04:00 | DI.CT_ITS ---
Exam(s) CT CHEST PE CTA EXAM: CT CHEST PE CTA CLINICAL HISTORY: left chest pain, L neck pain, palpitations. TECHNIQUE: Imaging Protocol: Axial CT angiography was performed with multi-slice acquisition and mu lti-planar and/or 3D reconstructions. CONTRAST MATERIAL: Intravenous: Omnipaque 350 contrast volume:76 mL COMPARISON: CT ABD PELVIS WO CONTRAST from 04/27/2017 FINDINGS: Tracheobronchial tree: Patent where visualized. Pulmonary parenchyma: No consolidation or dominant measurable mass. No architectural distortion. Pulmonary Arteries: No evidence of filling defect to suggest pulmonary emboli. Mediastinum and Cecy: No dominant adenopathy or fluid collection. The esophagus is unremarkable. Visualized thyroid gland: There is a 1.7 cm hypodense nodule in the right lobe of the thyroid gland. Pleura: No effusion or pneumothorax. Heart: The heart is not dilated. No coronary artery calcifications are seen. No pericardial effusion. Aorta: Thoracic aorta non-dilated. No evidence of dissection. Minimal atherosclerosis is present. Upper abdomen: Unremarkable. Soft tissues: Unremarkable. Bones: Within normal limits for the patient's age. IMPRESSION: 1. No evidence of pulmonary embolism, thoracic aortic dissection or aneurysm. 2. 1.7 cm hypodense right thyroid nodule. Nonemergent thyroid ultrasound is recommended for further evaluation. Unexpected findings RADIATION DOSE DELIVERED: 419.74mGy.cm Total DLP DATA REPOSITORY: All CT scans at this facility are submitted to the National Radiology Data Registry (NRDR) Dose Index Registry (DIR) with the [employer] (ACR). RADIATION OPTIMIZATION: All CT scans at this facility use at least one of these dose optimization te chniques: automated exposure control; mA and/or kV adjustment per patient size (includes targeted exa ms where dose is matched to clinical indication); or iterative reconstruction.
--- NOTE | 2022-05-19 04:00 | DI.CT_ITS ---
Exam(s) CT BRAIN NECK CTA EXAM: CT BRAIN NECK CTA CLINICAL HISTORY: left neck pain, r/o dissection. TECHNIQUE: Imaging Protocol: Axial CT angiography was performed with multi-slice acquisition and mu lti-planar and/or 3D reconstructions. CONTRAST MATERIAL: Intravenous: Omnipaque 350 contrast volume:85 mL COMPARISON: CT CT CHEST PE CTA from 05/19/2022 FINDINGS: CT Head W/O and W: Ventricles and Extra axial spaces: Normal in size and morphology for the patient's age. Hemorrhage: None. Cerebral parenchyma: There is no evidence of an acute territorial infarct. Midline shift: None. Brainstem/Cerebellum: Normal. Calvarium: Normal. Visualized Paranasal sinuses/Mastoids: Clear. Soft Tissues: Unremarkable. Enhancement: Unremarkable. CTA Neck W: Common Carotid: Right: No dissection, occlusion or significant stenosis. Left: No dissection, occlusion or significant stenosis. External Carotid: Right: No occlusion or significant stenosis. Left: No occlusion or significant stenosis. Internal Carotid: Right: No dissection, occlusion or significant stenosis. Left: No dissection, occlusion or significant stenosis. Vertebral Artery: Right: No dissection, occlusion or significant stenosis. Left: No dissection, occlusion or significant stenosis. Lung Apices: Normal. Bones: Within normal limits for the patient's age. Soft Tissues: Normal. Thyroid gland: There is a 1.7 cm right thyroid lesion. CTA Brain W: Internal Carotid Arteries: Normal. Anterior Cerebral Arteries: Right: No aneurysm, occlusion or significant stenosis. Left: No aneurysm, occlusion or significant stenosis. Middle Cerebral Arteries: Right: No aneurysm, occlusion or significant stenosis. Left: No aneurysm, occlusion or significant stenosis. Posterior Cerebral Arteries: Right: No aneurysm, occlusion or significant stenosis. Left: No aneurysm, occlusion or significant stenosis. Vertebral Arteries: Right: No aneurysm, occlusion or significant stenosis. Left: No aneurysm, occlusion or significant stenosis. Basilar Artery: No aneurysm, occlusion or significant stenosis. IMPRESSION: 1. No large vessel occlusion or significant stenosis on the CT angiography of the head. 2. No acute intracranial process. 3. No occlusion or significant stenosis on the CT angiography of the neck. RADIATION DOSE DELIVERED: 2,186.71mGy.cm Total DLP DATA REPOSITORY: All CT scans at this facility are submitted to the National Radiology Data Registry (NRDR) Dose Index Registry (DIR) with the [employer] (ACR). RADIATION OPTIMIZATION: All CT scans at this facility use at least one of these dose optimization te chniques: automated exposure control; mA and/or kV adjustment per patient size (includes targeted exa ms where dose is matched to clinical indication); or iterative reconstruction.
[2022-05-19 04:02] LABS: COVID-19 PCR Negative (Negative); Influenza A PCR Negative (Negative); Influenza B PCR Negative (Negative); RSV PCR Negative (Negative)
[2022-05-19 04:03] LABS: Source Nasopharynx
[2022-05-19 04:05] LABS: D-Dimer 751 ng/mlFEU (<500)
[2022-05-19] MEDS: Potassium Chloride 20 MEQ TABCR 40 MEQ PO (04:26)
[2022-05-19] MEDS: POTASSIUM CHLORIDE 10 MEQ/100 ML BAG 100 MEQ IVPB (04:27)
[2022-05-19] MEDS: Normal Saline - Diluent 50 ML VIAL IJ ×2 (04:59→05:16)
[2022-05-19] MEDS: Omnipaque 350 MG/ML 100 ML BTL 85 ML IJ (04:59)
[2022-05-19] MEDS: Omnipaque 350 MG/ML 50 ML BTL IJ (05:15)
--- NOTE | 2022-05-19 05:25 | DI.VRAD_ITS ---
PROCEDURE INFORMATION: Exam: CTA Head Without And With Contrast, Arteriography Exam date and time: 05/19/2022 4:51 AM Age: 31 years old Clinical indication: Stroke-like symptoms; Other: Left neck pain, R/O dissection TECHNIQUE: Imaging protocol: Computed tomographic angiography of the head without and with contrast. Exam focused on the arteries. 3D rendering (Not supervised by radiologist): MIP and/or 3D reconstructed images were created by the technologist. Radiation optimization: All CT scans at this facility use at least one of these dose optimization techniques: automated exposure control; mA and/or kV adjustment per patient size (includes targeted exams where dose is matched to clinical indication); or iterative reconstruction. Contrast material: OMNI 350; Contrast volume: 100 ml; Contrast route: INTRAVENOUS (IV); Other technique: STROKE PROTOCOL was implemented. COMPARISON: US SOFT TISSUE HEAD OR NECK 07/01/2021 11:49 AM FINDINGS: ANTERIOR CIRCULATION: Right internal carotid artery: Intracranial segment is patent with no significant stenosis or occlusion. No aneurysm. Right middle cerebral artery: No occlusion or significant stenosis. No aneurysm. Right anterior cerebral artery: No occlusion or significant stenosis. No aneurysm. Left internal carotid artery: Intracranial segment is patent with no significant stenosis. No aneurysm. Left middle cerebral artery: No occlusion or significant stenosis. No aneurysm. Left anterior cerebral artery: No occlusion or significant stenosis. No aneurysm. POSTERIOR CIRCULATION: Right vertebral artery: No occlusion or significant stenosis. No aneurysm. Left vertebral artery: No occlusion or significant stenosis. No aneurysm. Basilar artery: No occlusion or significant stenosis. No aneurysm. Right posterior cerebral artery: No occlusion or significant stenosis. No aneurysm. Left posterior cerebral artery: No occlusion or significant stenosis. No aneurysm. Transverse sinuses: Relatively hypoplastic transverse sinus on the left which can be a normal variant. HEAD: Brain: There is maintenance of brain volume without acute hemorrhage or acute territorial infarct. No enhancing lesions in the brain. Venous contamination without venous thrombus. Cerebral ventricles: Normal. No ventriculomegaly. Bones/joints: Unremarkable. No acute fracture. Paranasal sinuses: Visualized sinuses are normal. No fluid levels. Mastoid air cells: Visualized mastoids are normal. No mastoid effusion. Soft tissues: Unremarkable. IMPRESSION: No acute intracranial abnormality. No large vessel occlusion. ASSESSMENT: ASPECTS ([place] Stroke Program Early CT Score) is 10. PROCEDURE INFORMATION: Exam: CTA Neck Without And With Contrast Exam date and time: 05/19/2022 4:51 AM Age: 31 years old Clinical indication: Stroke-like symptoms; Other: Left neck pain, R/O dissection TECHNIQUE: Imaging protocol: Computed tomographic angiography of the neck without and with contrast. 3D rendering (Not supervised by radiologist): MIP and/or 3D reconstructed images were created by the technologist. Radiation optimization: All CT scans at this facility use at least one of these dose optimization techniques: automated exposure control; mA and/or kV adjustment per patient size (includes targeted exams where dose is matched to clinical indication); or iterative reconstruction. Contrast material: OMNI 350; Contrast volume: 100 ml; Contrast route: INTRAVENOUS (IV); COMPARISON: US SOFT TISSUE HEAD OR NECK 07/01/2021 11:49 AM FINDINGS: Right common carotid artery: No stenosis. No dissection or occlusion. Right internal carotid artery: No stenosis of the extracranial segment. No dissection or occlusion. Right external carotid artery: No occlusion or stenosis of the origin. Left common carotid artery: No stenosis. No dissection or occlusion. Left internal carotid artery: No stenosis of the extracranial segment. No dissection or occlusion. Left external carotid artery: No occlusion or stenosis of the origin. Right vertebral artery: No stenosis. No dissection or occlusion. Left vertebral artery: No stenosis. No dissection or occlusion. Thyroid: Heterogeneous right thyroid lobe with a dominant low-density 20 mm lesion that can be followed non emergently with ultrasound. Lymph nodes: No lymphadenopathy. Soft tissues: Normal. No significant soft tissue swelling. Bones/joints: No acute fracture. Loss of the lordosis suggests spasm. Esophagus: Patulous esophagus. IMPRESSION: No significant vascular abnormality. Thyroid lesions as above. REFERENCES: NASCET CRITERIA. The degree of stenosis in the cervical segment of the internal carotid artery is based on NASCET criteria. Normal is no stenosis. Mild is less than 50% stenosis. Moderate is 50-69% stenosis. Severe is 70% to 99% stenosis. Total occlusion is no detectable patent lumen. Dictated and Authenticated by: Omid Brandt MD. Ordering:RONEN Fraga MD
--- NOTE | 2022-05-19 06:12 | DI.VRAD_ITS ---
PROCEDURE INFORMATION: Exam: CTA Chest With Contrast Exam date and time: 05/19/2022 5:03 AM Age: 31 years old Clinical indication: Left-sided and other: Left chest pain, L neck pain, palpitations TECHNIQUE: Imaging protocol: Computed tomographic angiography of the chest with contrast. 3D rendering (Not supervised by radiologist): MIP and/or 3D reconstructed images were created by the technologist. Radiation optimization: All CT scans at this facility use at least one of these dose optimization techniques: automated exposure control; mA and/or kV adjustment per patient size (includes targeted exams where dose is matched to clinical indication); or iterative reconstruction. Contrast material: OMNI 350; Contrast volume: 100 ml; Contrast route: INTRAVENOUS (IV); COMPARISON: No relevant prior studies for comparison. FINDINGS: Pulmonary arteries: No filling defects in the central, lobar, or proximal segmental pulmonary arteries to suggest pulmonary emboli. Normal caliber main pulmonary artery. Aorta: Normal in caliber. Though evaluation of the ascending aorta is limited by cardiac pulsation artifact, there are no findings to suggest aortic dissection. Lungs: There are minimal dependent hypoventilatory changes in both lower lobes. The lungs are otherwise clear and well aerated, without consolidation or mass. The trachea and central main airways are patent and normal in caliber. Pleural spaces: No pleural effusion or pneumothorax. Heart: Heart size is normal. No coronary artery calcifications. No pericardial effusion.Small amount of residual thymic tissue in the anterior/superior mediastinum, not unexpected in a young patient. Lymph nodes: Unremarkable. No pathologically enlarged mediastinal, hilar, or axillary lymph nodes. Bones/joints: No suspicious osseous lesions. Soft tissues: Unremarkable. Other findings: Tiny hiatal hernia. IMPRESSION: No acute abnormality in the chest. No evidence of pulmonary emboli. Dictated and Authenticated by: Radha Gonzalez MD. Ordering:RONEN Fraga MD
== END 2022-05-19 14:58 | disposition home or self-care (01) ==
PROVIDERS: Emergency Provider Student in an Organized Health Care Education/Training Program; PCP Nurse Practitioner Family
DX: E87.6 Hypokalemia (principal); M79.602 Pain in left arm; M54.2 Cervicalgia; R79.89 Other specified abnormal findings of blood chemistry; Z20.822 Contact with and (suspected) exposure to COVID-19; Z85.9 Personal history of malignant neoplasm, unspecified
CPT/HCPCS: 70496; 70498; 71275; 80053; 81025; 87637; 93005; 96361; 96374; 96375; 96376; 99285; 83735; 84443; 84484; 85025; 85379; 93010; J1885; J3480; J3490; Q9967

== ENCOUNTER 2022-05-19 14:20 | Emergency (ER) | payer MEDICAID, SELFPAY ==
[2022-05-19 14:27] VITALS: BP 169/86; PULSE 75; RESP 18; TEMP 37; O2SAT 99
--- NOTE | 2022-05-19 14:35 | ED.GENADUL_ITS ---
Discharge Plan Disposition Patient Disposition: Home Condition: Improving Discharge Details Clinical Impression: Nausea, Dizziness and giddiness Primary Care Provider: Serafin Guidry ED Provider: Karen Valenzuela Home Meds and New Rx's Prescriptions: No Action magnesium oxide 400 MG capsule 400 mg PO DAILY cholecalciferol (vitamin D3) [Vitamin D3] 2,000 UNIT capsule 2,000 unit PO DAILY Label Comments: 07-31-17 pt reports that she is no longer taking this med. hb albuterol sulfate [ProAir HFA] 8.5 GM HFA aerosol inhaler 2 puff Inhalation Q4H PRN Qty: 1 0RF fluoxetine 10 mg capsule 10 mg PO QAM Qty: 42 4RF Rx Instructions: take for 14 days PRIOR TO FIRST DAY OF MENSES every month. (14d monthly cycle for PMDD) #42 should be a 90 day supply Discharge Instructions Instructions: Dizziness (ED) Additional Instructions: You may get Dramamine or meclizine [id number]-[id number]. Please take as directed. Take Zofran or ondansetron up to 3 times daily only as needed for nausea 20 to 30 minutes prior to eating or drinking anything. Follow up with primary care provider in 3-5 days. Increase oral fluids. Referrals: Serafin Guidry, [facility] [Primary Care Provider] - 3 days Medical Decision Making Patient given meclizine, Zofran ODT to go, liter of normal saline bolus ordered. Patient had a full complete work-up including a CTA chest labs and a negative fluid swab yesterday at this time I do not feel that patient warrants a repeat work-up. Patient reports feeling much better after the Zofran which was given by EMS. This text was generated using [employer] system, please disregard any oddities of phrase or misspellings. Medical Records Medical records reviewed: Yes I reviewed the patient's medical records. Medical records narrative: Patient seen here earlier this morning had complete labs including a fluvid and a CTA to rule out PE which was negative. Lab Data Lab results reviewed: Yes I reviewed the patient's lab results. Sign Out No HPI General Mode of arrival: ambulatory . Date/Time Provider Initiated Documentation: 05/19/22 14:28 . Limitations to Documentation: no limitations . Information obtained by: patient, EMS, RN notes reviewed and old records reviewed . HPI Narrative: 29-year-old female past medical history obstructive sleep apnea, benign adrenal tumor, anxiety, kidney stones and dysmenorrhea presents to the ER for the second time today with a chief complaint of nausea, dizziness. Patient was seen here and had a complete work-up around 3 AM this morning after being seen for some chest pain she had a negative CTA for elevated D-dimer and was instructed on increasing her potassium which was a low value of 3.0. She reports that she went home tried to rest woke up feeling dizzy and lightheaded. She states that she ate and continue to feel lightheaded. She also reports oncoming of headache or a migraine that she has a history of., She was given 4 mg of Zofran IV per EMS and an INT was started. Related Data Home Medications Medication Instructions Recorded Confirmed magnesium oxide 400 mg PO DAILY 10/12/16 05/02/22 cholecalciferol (vitamin D3) 50 2,000 unit PO DAILY 07/06/17 05/02/22 mcg (2,000 unit) capsule (Vitamin D3) albuterol sulfate 90 mcg/actuation 2 puff inhalation Q4H PRN ##1 10/01/17 05/02/22 aerosol inhaler (ProAir HFA) fluoxetine 10 mg capsule 10 mg PO QAM #42 caps 04/03/22 05/02/22 Previous Rx's Medication Instructions Recorded albuterol sulfate 90 mcg/actuation 2 puff inhalation Q4H PRN ##1 10/01/17 aerosol inhaler (ProAir HFA) fluoxetine 10 mg capsule 10 mg PO QAM #42 caps 04/03/22 Allergies Allergy/AdvReac Type Severity Reaction Status Date / Time latex Allergy Severe Hives Verified 05/02/22 11:09 Penicillins Allergy Severe Anaphylaxsi Verified 05/02/22 11:09 s shellfish derived Allergy Severe Anaphylaxsi Verified 05/02/22 11:09 s Sulfa (Sulfonamide Allergy Severe Hives Verified 05/02/22 11:09 Antibiotics) nitrofurantoin Allergy Intermediate Skin Rash, Verified 05/02/22 11:09 anxiety, dry mouth General Stated Complaint: Abd Prob REY: 3 Review of Systems All systems reviewed & are unremarkable except as noted in HPI and below Constitutional Constitutional: Reports as per HPI and Reports headache(s) ENT Ears, Nose, Mouth, and Throat: Reports dizziness and Reports headache(s) Cardiovascular Cardiovascular: Reports lightheadedness Gastrointestinal Gastrointestinal: Denies abdominal pain, Denies diarrhea, Reports nausea and Denies vomiting Neurologic Neurologic: Reports dizziness and Reports headache(s) PFSH All Active Problems (Updated 05/19/22 @ 15:22 by Karen Valenzuela NP) Acute hypokalemia (Acute) Neck pain on left side (Acute) Nausea (Acute) Dizziness and giddiness (Acute) Impacted cerumen, right ear (Acute) Bilateral carpal tunnel syndrome (Acute) PMDD (premenstrual dysphoric disorder) (Acute) H/O surgical procedure (Chronic) a. appendectomy b. colonoscopy c. endometrial biopsy d. tonsillectomy e. EGD - with MAC Obstructive sleep apnea (Chronic) Dx 2017 - [facility] [place] Used CPAP for approx. 1 year - has not used for 1 yr. 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 Nl testosterone and 17-OH-P4. Eval by [facility] [place] product development assistant. Benign mass on adrenal. Neg pheochromocytoma w/u. 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 Ventura Pruritic condition (Chronic 05/21/14) Vitamin D deficiency (Chronic 07/05/17) Adrenal benign tumor (Chronic) Renal colic (Chronic) Medical History Adrenal benign tumor [address] scan during w/u for elevated DHEAs. Had nl endo w/u at [facility] [place]. Expectant management. Anxiety Panic attacks. Somatic complaints. Dermatitis (07/17/16) Drug-induced nausea and vomiting Dysmenorrhea 2014 Nl pelvic u/s. Nl endometrial bx. Kidney stone on right side Pelvic pain 2014 Episodic. GI w/u neg. 2014 [employer] w/u neg. 11/2015 recurrence of sx after 08/2015. Surgical History Appendectomy Colonoscopy - MAC 06/17/14 [facility] [place] EGD - MAC 06/17/14- [facility] [place] Endometrial Biopsy 08/18/14 [facility] History of appendectomy History of esophagogastroduodenoscopy History of gynecological procedure Status post tonsillectomy Surgery 08/25-kidney stone Tonsillectomy Family History Mother Depression Hyperlipidemia Father Diabetes Essential hypertension Heart disease Hyperlipidemia Maternal Grandfather Diabetes Hyperlipidemia Thyroid cancer Prostate cancer Liver cancer Paternal Grandfather Heart disease Asthma Maternal Grandmother , 73 Essential hypertension Hyperlipidemia Myeloma Bone cancer Paternal Grandmother , 79 Essential hypertension Myeloma Bone cancer Brother Substance abuse Son No problems noted. Son No problems noted. Daughter No problems noted. Social History Smoking/Tobacco Use Status: Never Second Hand Exposure: No Smoking risk assessment performed?: Yes Alcohol Intake: never Drug use: Never Substance use type: does not use Counseling given: No Counseling provided: none Caregiver/Support person: No Household members: spouse and children Housing: house Communication Needs: None Do you need help understanding health information?: Never Pets and animals: Yes Pets and animals: other Details: Chickens Sexually active: Yes Do you think of yourself as: straight/heterosexual Current gender identity: female What is your relationship status?: How often do you talk on the phone with friends or family?: three or more times per week How often do you get together with friends or relatives?: twice per week How often do you attend caodaism or presybeterian services?: 1-3 times per year Do you belong to any clubs or organized social groups?: no Panel score (0-1 are the most socially isolated patients): 2 What type of physical activity do you participate in: running Duration: 15-30 minutes/day Frequency: 3-4 times per week Vianney/Zoroastrian: No preference Special vianney needs: No Seatbelt use: always Helmet use: Yes Helmet use: always Drive intox or ride w/intox otr refrigerated cdl truck driver: No Do you feel safe at home: Yes Do you feel safe in your relationship?: Yes Female Reproductive History Menstrual control method: other History History 4 Para 3 Hx # Term Pregnancies Multiple births Hx # Pregnancies Ectopic pregnancies AB induced Hx Number of Living Children AB spontaneous 1 Exam Narrative Exam Narrative: Constitutional: Alert and oriented x3. Appears stated age. Normal body habitus. Head: Normocephalic, no trauma. Eyes: Pupils PERRL, Red reflex noted, EOM's intact. Eyelids symmetrical without lesions, discharge, or swelling. ENT: Bilateral TM's WNL, External ear normal to inspection, no mastoid TTP, swelling, or erythema, Nasal turbinates WNL, no nasal discharge. Normal dentition, Posterior pharynx WNL, no exudate. Chest: RRR, Normal S1, S2, distal pulses intact. Resp: Lungs clear to auscultation bilaterally, no wheezes, rales, or rhonchi. Abdomen: Soft, non-distended, Normoactive bowel sounds all 4 quads. Musculoskeletal: Normal gait, 5/5 strength to all four extremities. Skin: Slightly pale, no suspicious rashes or lesions. Capillary refill less than 2 sec. Neurologic: Cranial nerves II-XII intact. Alert and oriented x 3. Motor: No deficits noted. Sensory: Intact bilaterally all 4 extremities. Reflexes: DTR's intact bilaterally.. Hematologic/Lymphatic: No ecchymosis, no lymphadenopathy. Course Vital Signs Vital signs: Vital Signs Temperature 37.0 C 05/19/22 14:27 Pulse 75 05/19/22 14:27 Respiratory Rate 18 05/19/22 14:27 Blood Pressure 169/86 H 05/19/22 14:27 Pulse Oximetry 99 05/19/22 14:27 Temperature 37.0 C 05/19/22 14:27 Temperature Source Oral 05/19/22 14:27 Pulse 75 05/19/22 14:27 Respiratory Rate 18 05/19/22 14:27 Blood Pressure 169/86 H 05/19/22 14:27 Pulse Oximetry 99 05/19/22 14:27 Oxygen Delivery Method Room Air 05/19/22 14:27 Oxygen Flow Rate 0 05/19/22 14:27 Pain Level 4 05/19/22 14:27
[2022-05-19] MEDS: Acetaminophen 500 MG TAB PO (14:54)
[2022-05-19] MEDS: Meclizine 25 MG TAB PO (14:54)
[2022-05-19] MEDS: Normal Saline 1,000 ML 1000 ML IV (14:55)
[2022-05-19] MEDS: Ondansetron O.D.T. 4 MG TABEF, 3 TABS/BTL PO (14:58)
== END 2022-05-19 16:14 | disposition home or self-care (01) ==
LOC: ER 16:14
PROVIDERS: Emergency Provider Registered Nurse Emergency; PCP Nurse Practitioner Family
DX: R11.0 Nausea (principal); R42 Dizziness and giddiness
CPT/HCPCS: 81025; 96360; 96361; 96374; 96375; 96376; 99284; 99285; 99283

== ENCOUNTER 2022-06-01 09:14 | Outpatient (RCR) | payer MEDICAID, SELFPAY ==
--- NOTE | 2022-06-01 09:15 | HOLTER_ITS ---
APPROVED REPORT Conclusion This is a 48-hour Holter monitor reportedly ordered for palpitations Rhythm throughout was sinus with an average heart rate of 91. Minimum was 67, maximum 145 There were no atrial or ventricular dysrhythmias recorded There was no atrial fibrillation, no SVT, no high-grade AV block, no pauses greater than 3 seconds There were no apparent patient symptoms
== END 2022-06-10 23:59 | disposition home or self-care (01) ==
LOC: CARDOPNVT 09:14
PROVIDERS: PCP Nurse Practitioner Family; Visit Provider Nurse Practitioner Family
DX: R00.2 Palpitations (principal)
CPT/HCPCS: 93225; 93226

== ENCOUNTER 2022-06-01 10:25 | Outpatient (CLI) | payer MEDICAID, SELFPAY ==
[2022-06-01 10:30] LABS: Anion Gap 7.8 mmol/L (3-11); BUN 11 mg/dL (7-18); CO2 27.2 mmol/L (21.0-32.0); CREATININE 0.8 mg/dL (0.55-1.02); Chloride 104 mmol/L (98-107); Estimated GFR 100.33 (mL/min/1.73m2); Glucose 92 mg/dL (74-106); Magnesium 2.1 mg/dL (1.8-2.4); Potassium 3.9 mmol/L (3.5-5.1); Sodium 139 mmol/L (136-145)
== END 2022-06-01 10:26 | disposition home or self-care (01) ==
LOC: LBO 10:25
PROVIDERS: PCP Nurse Practitioner Family; Visit Provider Family Medicine
DX: E87.6 Hypokalemia (principal); I10 Essential (primary) hypertension
CPT/HCPCS: 36415; 80048; 83735

== ENCOUNTER 2022-06-19 17:19 | Outpatient (REF) | payer MEDICAID, SELFPAY ==
[2022-06-19 20:49] LABS: HCT 41.9 % (36.0-46.0); HGB 14.4 g/dL (11.2-15.7); MCH 32.3 pg (27.0-33.0); MCHC 34.4 % (32.0-36.0); MCV 94 fL (80-95); MPV 11.7 fL (8.0-11.0); Platelet Count 314 10^3/uL (130-400); RBC 4.46 10^6/uL (3.93-5.22); RDW 12.2 % (11.7-14.6); RDW-SD 42.3 fL; WBC 8.32 10^3/uL (4.4-10.8)
[2022-06-19 20:55] LABS: BUN 12 mg/dL (7-18); CREATININE 0.6 mg/dL (0.55-1.02); Calcium 9.7 mg/dL (8.5-10.1); Chloride 104 mmol/L (98-107); Estimated GFR 122.23 (mL/min/1.73m2); Glucose 86 mg/dL (74-106); Magnesium 2.3 mg/dL (1.8-2.4); Potassium 4.2 mmol/L (3.5-5.1); Sodium 140 mmol/L (136-145)
== END 2022-06-19 17:20 | disposition home or self-care (01) ==
LOC: LBN 17:19
PROVIDERS: PCP Nurse Practitioner Family; Visit Provider Nurse Practitioner Family
DX: R30.0 Dysuria (principal); R42 Dizziness and giddiness
CPT/HCPCS: 80048; 85027; 83735; 87480; 87510; 87660

== ENCOUNTER 2022-06-23 12:02 | Emergency (ER) | payer MEDICAID, SELFPAY ==
--- NOTE | 2022-06-23 12:00 | RT.EKG_ITS ---
APPROVED REPORT Exam: Resting ECG Reason for Exam: Dizziness Patient Location: E HR:68 bpm ECG Measurements Heart Rate 68 AXIS TN 131 P 36 QRSd 82 QRS 48 QT 387 T 24 QTc 411 Conclusion Sinus rhythm...normal P axis, V-rate 60- 99 sinus rhythm, normal axis, normal intervals, non ischemic
[2022-06-23 12:08] VITALS: BP 134/75; RESP 69; TEMP 36.9; O2SAT 100
--- NOTE | 2022-06-23 12:45 | DI.CT_ITS ---
Exam(s) CT HEAD WO EXAM: CT HEAD WO CLINICAL HISTORY: Headache, Visual disturbance. TECHNIQUE: Imaging Protocol: Axial computed tomography images with coronal and sagittal reformatted images were created and reviewed COMPARISON: No exams were available for comparison FINDINGS: Ventricles and Extra axial spaces: Normal in size and morphology for the patient's age. Hemorrhage: None. Cerebral parenchyma: Normal. Midline shift: None. Brainstem/Cerebellum: Normal. Calvarium: Normal. Visualized Paranasal sinuses/Mastoids: Clear. Soft Tissues: Unremarkable. IMPRESSION: 1. No acute intracranial process. 2. Findings were discussed with the emergency department at 2:49 p.m. on 06/23/2022. RADIATION DOSE DELIVERED: 842.87mGy.cm Total DLP DATA REPOSITORY: All CT scans at this facility are submitted to the National Radiology Data Registry (NRDR) Dose Index Registry (DIR) with the [employer] (ACR). RADIATION OPTIMIZATION: All CT scans at this facility use at least one of these dose optimization te chniques: automated exposure control; mA and/or kV adjustment per patient size (includes targeted exa ms where dose is matched to clinical indication); or iterative reconstruction.
--- NOTE | 2022-06-23 12:50 | ED.GENADUL_ITS ---
Discharge Plan Disposition Patient Disposition: Home Condition: Stable Discharge Details Clinical Impression: Headache Primary Care Provider: Serafin Guidry ED Provider: Karen Valenzuela Home Meds and New Rx's Prescriptions: New rmwvlxzhsm-ohhpxsxjpxvzu-wnip 50-325-40 mg capsule 1 cap PO Q6H PRN (Reason: pain) 7 Days Qty: 10 0RF Rx Instructions: Take 1 capsule every 6 hours daily as needed for headache. Do not take more than 4 capsules in a 24-hour period. Continued meclizine 25 mg tablet 25 mg PO BID PRN (Reason: dizziness) Qty: 10 0RF Rx Instructions: may take 1 tab every 12 hours as needed for nausea/vertigo magnesium oxide 400 MG capsule 400 mg PO DAILY cholecalciferol (vitamin D3) [Vitamin D3] 2,000 UNIT capsule 2,000 unit PO DAILY Label Comments: 07-31-17 pt reports that she is no longer taking this med. hb fluoxetine 10 mg capsule 10 mg PO QAM Qty: 42 4RF Rx Instructions: take for 14 days PRIOR TO FIRST DAY OF MENSES every month. (14d monthly cycle for PMDD) #42 should be a 90 day supply albuterol sulfate [ProAir HFA] 90 mcg/actuation HFA aerosol inhaler 2 puff Inhalation Q4H PRN Qty: 8.5 3RF Discharge Instructions Instructions: General Headache (ED) Additional Instructions: Take the Fioricet as directed as needed. CT head is within normal limits. Follow up with primary care provider in 3-5 days. Return to ED sooner if any worsening or concerns. Increase oral fluids. Please take Tylenol or Ibuprofen with food every 4-6 hours as needed for pain and swelling. Referrals: Serafin Guidry, [employer] [Primary Care Provider] - 3 days Discharge Data Discharge Date/Time-TO BE ENTERED AT DEPARTURE: 06/23/22 15:19 Medical Decision Making 31-year-old female with past medical history of adrenal benign tumor, anxiety, dysmenorrhea kidney stones presents to the ER with a chief complaint of headache since Sunday. She was seen at [facility] on Sunday and a negative flu and COVID test, had a pelvic exam which was within normal limits. She has had a recent negative Holter monitor exam in May. She was given meclizine at the appointment which she reports is helped with the nausea however the headache has persisted. She describes it as worse at night and worse with position changes, she also describes some intermittent floaters. Dizziness increases when she looks up. No nystagmus noted on exam. Negative hints exam. She denies any fever chills no neck pain. Head CT negative, CMP largely within normal limits, IV was unable to be established by staff development nurse. Meds were given PO. Differential diagnosis includes but not limited to migraine, tension headache, intracranial mass, URI, sinusitis. Will send patient home with Fioricet. CT within normal limits, CMP also within normal limits. CBC was unable to be obtained by lab director of designstaff development nurse. Patient received Benadryl p.o. and Zofran ODT while here. She was also given a tablet of Fioricet. Discussed tricked return instructions follow-up care, verbalized understanding. This text was generated using [employer] dictation system, please disregard any oddities of phrase or misspellings. Lab Data Lab results reviewed: Yes I reviewed the patient's lab results. Labs: Laboratory Tests Range/Units 06/23/22 06/23/22 13:12 13:58 Sodium (136-145) mmol/L 138 Potassium (3.5-5.1) mmol/L 4.7 Chloride (98-107) mmol/L 105 Carbon Dioxide (21.0-32.0) mmol/L 19.6 L Anion Gap (3-11) mmol/L 13.4 H BUN (7-18) mg/dL 12 Creatinine (0.55-1.02) mg/dL < 0.2 L Est GFR (CKD-EPI 2020) (mL/min/1.73m2) 159.28 Glucose (74-106) mg/dL 86 Calcium (8.5-10.1) mg/dL 9.4 Total Bilirubin (0.2-1.0) mg/dL 0.6 AST (15-37) U/L 26 ALT (14-59) U/L 19 Alkaline Phosphatase (46-116) U/L 67 Total Protein (6.4-8.2) g/dL 8.2 Albumin (3.4-5.0) g/dL 4.2 COVID-19 Source Nasal/Nares SARS-CoV-2 (PCR) (Negative) Negative HPI General Mode of arrival: ambulatory . Date/Time Provider Initiated Documentation: 06/23/22 12:04 . Limitations to Documentation: no limitations . Information obtained by: patient, RN notes reviewed and old records reviewed . HPI Narrative: 31-year-old female with past medical history of adrenal benign tumor, anxiety, dysmenorrhea kidney stones presents to the ER with a chief complaint of headache since Sunday. She was seen at [facility] on Sunday and a negative flu and COVID test, had a pelvic exam which was within normal limits. She has had a recent negative Holter monitor exam in May. She was given meclizine at the appointment which she reports is helped with the nausea however the headache has persisted. She describes it as worse at night and worse with position changes, she also describes some intermittent floaters. Dizziness increases when she looks up. No nystagmus noted on exam. Negative hints exam. She denies any fever chills no neck pain. She does endorse slight sore throat. Denies any vomiting diarrhea or any other associated symptoms. Denies any recent head trauma. Related Data Home Medications Medication Instructions Recorded Confirmed magnesium oxide 400 mg PO DAILY 10/12/16 06/23/22 cholecalciferol (vitamin D3) 50 2,000 unit PO DAILY 07/06/17 06/23/22 mcg (2,000 unit) capsule (Vitamin D3) fluoxetine 10 mg capsule 10 mg PO QAM #42 caps 04/03/22 06/23/22 albuterol sulfate 90 mcg/actuation 2 puff inhalation Q4H PRN #8.5 05/29/22 06/23/22 aerosol inhaler (ProAir HFA) grams meclizine 25 mg tablet 25 mg PO BID PRN dizziness #10 tabs 06/19/22 06/23/22 ufjokbcnys-ociqgtolfujao-ypbdzkad 1 cap PO Q6H PRN pain 7 days #10 06/23/22 50 mg-325 mg-40 mg capsule caps Previous Rx's Medication Instructions Recorded fluoxetine 10 mg capsule 10 mg PO QAM #42 caps 04/03/22 albuterol sulfate 90 mcg/actuation 2 puff inhalation Q4H PRN #8.5 05/29/22 aerosol inhaler (ProAir HFA) grams meclizine 25 mg tablet 25 mg PO BID PRN dizziness #10 tabs 06/19/22 aqrhbofndx-wvmcuzqnyjkcz-tbfhmbxo 1 cap PO Q6H PRN pain 7 days #10 06/23/22 50 mg-325 mg-40 mg capsule caps Allergies Allergy/AdvReac Type Severity Reaction Status Date / Time latex Allergy Severe Hives Verified 06/23/22 12:18 Penicillins Allergy Severe Anaphylaxsi Verified 06/23/22 12:18 s shellfish derived Allergy Severe Anaphylaxsi Verified 06/23/22 12:18 s Sulfa (Sulfonamide Allergy Severe Hives Verified 06/23/22 12:18 Antibiotics) nitrofurantoin Allergy Intermediate Skin Rash, Verified 06/23/22 12:18 anxiety, dry mouth General Stated Complaint: Headache REY: 4 Review of Systems All systems reviewed & are unremarkable except as noted in HPI and below PFSH All Active Problems (Updated 06/23/22 @ 15:02 by Karen Valenzuela NP) Headache (Acute) Vaginal irritation (Acute) Calculus of kidney (Chronic) Impacted cerumen, right ear (Acute) Bilateral carpal tunnel syndrome (Acute) PMDD (premenstrual dysphoric disorder) (Acute) H/O surgical procedure (Chronic) a. appendectomy b. colonoscopy c. endometrial biopsy d. tonsillectomy e. EGD - with MAC Obstructive [place] (Chronic) [place] [facility] [place] for approx. 1 year - has not used for 1 yr. 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 Nl testosterone and 17-OH-P4. [place] [facility] [place]. Benign mass on adrenal. Neg pheochromocytoma w/u. 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 Pruritic condition (Chronic 05/21/14) Vitamin D deficiency (Chronic 07/05/17) Adrenal benign tumor (Chronic) Renal colic (Chronic) Medical History Adrenal benign tumor [address] scan during w/u for elevated DHEAs. [place] [facility] [place] Expectant management. Anxiety Panic attacks. Somatic complaints. Dermatitis (07/17/16) Drug-induced nausea and vomiting Dysmenorrhea 2014 Nl pelvic u/s. Nl endometrial bx. Kidney stone on right side Pelvic pain 2014 Episodic. GI w/u neg. 2014 Sports Doctor w/u neg. 11/2015 recurrence of sx after 08/2015. Surgical History Appendectomy [place]oscopy - [facility] [place]17[place] [facility] [place]17[place] [facility] [place]18[place]14 [facility] History of appendectomy History of esophagogastroduodenoscopy History of gynecological procedure Status post tonsillectomy Surgery 08/25-kidney stone Tonsillectomy Family History Mother Depression Hyperlipidemia Father Diabetes Essential hypertension Heart disease Hyperlipidemia Maternal Grandfather Diabetes Hyperlipidemia Thyroid cancer Prostate cancer Liver cancer Paternal Grandfather Heart disease Asthma Maternal Grandmother , 73 Essential hypertension Hyperlipidemia Myeloma Bone cancer Paternal Grandmother , 79 Essential hypertension Myeloma Bone cancer Brother Substance abuse Son No problems noted. Son No problems noted. Daughter No problems noted. Social History Smoking/Tobacco Use Status: Current-Occasional Tobacco Type: cigarettes Second Hand Exposure: No Smoking risk assessment performed?: Yes Alcohol Intake: never Drug use: Never Substance use type: does not use Counseling given: No Counseling provided: none Caregiver/Support person: No Household members: spouse and children Housing: house Communication Needs: None Do you need help understanding health information?: Never Pets and animals: Yes Pets and animals: other Details: Chickens Sexually active: Yes Do you think of yourself as: straight/heterosexual Current gender identity: female What is your relationship status?: How often do you talk on the phone with friends or family?: three or more times per week How often do you get together with friends or relatives?: twice per week How often do you attend voodoo or christian services?: 1-3 times per year Do you belong to any clubs or organized social groups?: no Panel score (0-1 are the most socially isolated patients): 2 What type of physical activity do you participate in: running Duration: 15-30 minutes/day Frequency: 3-4 times per week Vianney/Protestant: No preference Special vianney needs: No Seatbelt use: always Helmet use: Yes Helmet use: always Drive intox or ride w/intox vending route driver: No Do you feel safe at home: Yes Do you feel safe in your relationship?: Yes Female Reproductive History Menstrual control method: other History History 4 Para 3 Hx # Term Pregnancies Multiple births Hx # Pregnancies Ectopic pregnancies AB induced Hx Number of Living Children AB spontaneous 1 Exam Narrative Exam Narrative: Constitutional: Alert and oriented x3. Appears stated age. Normal body habitus. Head: Normocephalic, no trauma. Eyes: Pupils PERRL, Red reflex noted, EOM's intact. Eyelids symmetrical without lesions, discharge, or swelling. ENT: Bilateral TM's WNL, External ear normal to inspection, no mastoid TTP, swelling, or erythema, Nasal turbinates WNL, no nasal discharge. Normal dentition, Posterior pharynx WNL, no exudate. Chest: RRR, Normal S1, S2, distal pulses intact. Resp: Lungs clear to auscultation bilaterally, no wheezes, rales, or rhonchi. Abdomen: Soft, non-distended, Normoactive bowel sounds all 4 quads. Musculoskeletal: Normal gait, 5/5 strength to all four extremities. Skin: No suspicious rashes or lesions. Capillary refill less than 2 sec. Neurologic: Cranial nerves II-XII intact. Alert and oriented x 3. Motor: No deficits noted. Sensory: Intact bilaterally all 4 extremities. Reflexes: DTR's intact bilaterally.. Hematologic/Lymphatic: No ecchymosis, no lymphadenopathy. Course Vital Signs Vital signs: Vital Signs Temperature 36.9 C 06/23/22 12:08 Respiratory Rate 69 H 06/23/22 12:08 Blood Pressure 134/75 06/23/22 12:08 Pulse Oximetry 100 06/23/22 12:08 Temperature 36.9 C 06/23/22 12:08 Temperature Source Skin 06/23/22 12:08 Respiratory Rate 69 H 06/23/22 12:08 Respiratory Effort 06/23/22 12:13 Blood Pressure 134/75 06/23/22 12:08 Blood Pressure Position Sitting 06/23/22 12:08 Pulse Oximetry 100 06/23/22 12:08 Oxygen Delivery Method Room Air 06/23/22 12:08 Oxygen Flow Rate 0 06/23/22 12:08 Pain Level 7 06/23/22 12:08
[2022-06-23 13:17] LABS: Source Nasal/Nares
[2022-06-23] MEDS: diphenhydrAMINE 25 MG CAP PO (13:44)
[2022-06-23] MEDS: Ondansetron O.D.T. 4 MG TABEF PO (13:45)
[2022-06-23 13:48] LABS: COVID-19 PCR Negative (Negative)
[2022-06-23 14:28] LABS: Albumin 4.2 g/dL (3.4-5.0); Alkaline Phosphatase 67 U/L (46-116); BUN 12 mg/dL (7-18); Bilirubin, Total 0.6 mg/dL (0.2-1.0); CREATININE < 0.2 mg/dL (0.55-1.02); Calcium 9.4 mg/dL (8.5-10.1); Chloride 105 mmol/L (98-107); Estimated GFR 159.28 (mL/min/1.73m2); Glucose 86 mg/dL (74-106); Potassium 4.7 mmol/L (3.5-5.1); Sodium 138 mmol/L (136-145); Total Protein 8.2 g/dL (6.4-8.2)
[2022-06-23 14:29] LABS: ALT 19 U/L (14-59); AST 26 U/L (15-37); Anion Gap 13.4 mmol/L (3-11); CO2 19.6 mmol/L (21.0-32.0)
[2022-06-23] MEDS: Butalbital/Acetaminophen/Caffeine 50/325/40 TAB PO (14:38)
[2022-06-23 15:10] VITALS: BP 130/68; PULSE 72; RESP 16; TEMP 36.8; O2SAT 100
== END 2022-06-23 15:19 | disposition home or self-care (01) ==
PROVIDERS: Emergency Provider Registered Nurse Emergency; PCP Nurse Practitioner Family
DX: R51.9 Headache, unspecified (principal); Z20.822 Contact with and (suspected) exposure to COVID-19
CPT/HCPCS: 80053; 81025; 87635; 93005; 96365; 99284; 70450; 85025; 93010; 99285

== ENCOUNTER 2022-07-20 09:40 | Emergency (ER) | payer MEDICAID, SELFPAY ==
[2022-07-20 09:55] VITALS: BP 112/64; PULSE 73; RESP 16; TEMP 36.5; O2SAT 98
--- NOTE | 2022-07-20 10:12 | DI.CT_ITS ---
Exam(s) CT NECK W EXAM: CT NECK W INDICATION: ?abscess. COMPARISON: CT CT BRAIN NECK CTA from 05/19/2022 TECHNIQUE: IV contrast: 100 mL Omnipaque 350 FINDINGS: NASOPHARYNX: Unremarkable. OROPHARYNX: Unremarkable. No masses evident. No evidence of tonsillar abscess. REGINE DENTAL: Unremarkable. HYPOPHARYNX: Unremarkable. Valleculae and epiglottis and aryepiglottic folds appear normal. VOCAL CORDS: Unremarkable. No masses THYROID GLAND: Abnormal. There is abnormal enlargement of the right thyroid lobe with a 2 cm x 1.5 c m x 3 cm (craniocaudal) nodule or fluid collection within the right thyroid lobe. Isthmus appears un remarkable. No adjacent adenopathy. SALIVARY GLANDS: Unremarkable. No significant findings in the parotid and submandibular glands. LYMPH NODES: There is no prominent adenopathy evident in the neck and supraclavicular regions. OTHER: Minimal mucosal thickening in the right maxillary sinus. No fluid level. VISUALIZED LUNG APICES: No significant findings. OSSEOUS: No fractures. No significant osseous lesions. IMPRESSION: 1. No evidence of tonsillar abscess. No lymphadenopathy in the neck. 2. However, there is abnormal enlargement of the right thyroid lobe and this contains what is either irregular hypodense nodule or fluid collection measuring 2 x 1.5 x 3 cm. Discussed by myself with the ER physician. RADIATION DOSE DELIVERED: 434.52mGy.cm Total DLP 434.52mGy.cm Total DLP DATA REPOSITORY: All CT scans at this facility are submitted to the National Radiology Data Registry (NRDR) Dose Index Registry (DIR) with the [employer] (A[employer]). RADIATION OPTIMIZATION: All CT scans at this facility use at least one of these dose optimization te chniques: automated exposure control; mA and/or kV adjustment per patient size (includes targeted exa ms where dose is matched to clinical indication); or iterative reconstruction.
--- NOTE | 2022-07-20 10:20 | ED.GENADUL_ITS ---
Discharge Plan Disposition Patient Disposition: Home Condition: Stable Discharge Details Clinical Impression: Pain in throat, Neck pain Primary Care Provider: Serafin Guidry ED Provider: Aldair Herrera Home Meds and New Rx's Prescriptions: Continued meclizine 25 mg tablet 25 mg PO BID PRN (Reason: dizziness) Qty: 10 0RF Rx Instructions: may take 1 tab every 12 hours as needed for nausea/vertigo rizatriptan [Maxalt-[employer]] 10 mg tablet,disintegrating 10 mg PO ONCE PRN (Reason: migraine headache) Qty: 10 0RF Rx Instructions: may repeat once after at least 2 hours magnesium oxide 400 MG capsule 400 mg PO DAILY cholecalciferol (vitamin D3) [Vitamin D3] 2,000 UNIT capsule 2,000 unit PO DAILY Patient Comments: 07-31-17 pt reports that she is no longer taking this med. hb fluoxetine 10 mg capsule 10 mg PO QAM Qty: 42 4RF Rx Instructions: take for 14 days PRIOR TO FIRST DAY OF MENSES every month. (14d monthly cycle for PMDD) #42 should be a 90 day supply albuterol sulfate [ProAir HFA] 90 mcg/actuation HFA aerosol inhaler 2 puff Inhalation Q4H PRN Qty: 8.5 3RF Discharge Instructions Instructions: Neck Pain (ED) Additional Instructions: follow up with your primary care provider to have further testing of your thyroid if you have severe worsening pain, difficulty breathing or inability to swallow liquids return to the emergency department Medical Decision Making 31 yo female who was recently treated for a sinus infection and finished antibiotics Sunday comes in with continued throat and neck pain. denies fevers, vomiting, vision changes. She localizes her pain to the upper trapezius muscles bilaterally, no midline pain or deformities noted on exam. She has full rom of her neck and no meninismus. Denies any trauma. Her posterior pharynx is not erythematous, uvula midline, no drooling, swallowing normally. Her pain seems musculoskeletal in nature but given continued throat pain will obtain ct to evaluate for possible abscess. She denies ivdu and pain is not midline so doubt spinal epidural abscess and she appears well without meningismus so doubt telephone clerk infection labs unremarkable, ct shows no abscess, does have a nodule and ?fluid collection of the right thyroid per radilogy. She has no tenderness here, no swelling or redness or warmth of the neck and no significant adenopathy on ct so doubt abscess of the thyroid. Discussed results with her and she has a stable exam, advised to f/u with pcp for further workup of the thyroid lesion. Return precautions given Differential Diagnosis Differential Diagnosis: musculoskeletal pain, abscess HPI General Mode of arrival: ambulatory . Date/Time Provider Initiated Documentation: 07/20/22 09:55 . Limitations to Documentation: no limitations . Information obtained by: patient . History of Present Illness 31 year old F presents to the emergency department with the chief complaint of throat and neck pain, described as moderate, Quality is described as aching, and is localized to the neck. Patient reports no radiation. Patient started experiencing this week(s) (1) and it has been constant. Rest improves symptom(s), Movement worsens symptoms . Patient did receive the following treatments prior to arrival, none Related Data Home Medications Medication Instructions Recorded Confirmed magnesium oxide 400 mg PO DAILY 10/12/16 07/20/22 cholecalciferol (vitamin D3) 50 2,000 unit PO DAILY 07/06/17 07/20/22 mcg (2,000 unit) capsule (Vitamin D3) fluoxetine 10 mg capsule 10 mg PO QAM #42 caps 04/03/22 07/20/22 albuterol sulfate 90 mcg/actuation 2 puff inhalation Q4H PRN #8.5 05/29/22 07/20/22 aerosol inhaler (ProAir HFA) grams meclizine 25 mg tablet 25 mg PO BID PRN dizziness #10 tabs 06/19/22 07/20/22 rizatriptan 10 mg disintegrating 10 mg PO ONCE PRN migraine 06/27/22 07/20/22 tablet (Maxalt-[employer]) headache #10 tabs Previous Rx's Medication Instructions Recorded fluoxetine 10 mg capsule 10 mg PO QAM #42 caps 04/03/22 albuterol sulfate 90 mcg/actuation 2 puff inhalation Q4H PRN #8.5 05/29/22 aerosol inhaler (ProAir HFA) grams meclizine 25 mg tablet 25 mg PO BID PRN dizziness #10 tabs 06/19/22 rizatriptan 10 mg disintegrating 10 mg PO ONCE PRN migraine 06/27/22 tablet (Maxalt-[employer]) headache #10 tabs Allergies Allergy/AdvReac Type Severity Reaction Status Date / Time latex Allergy Severe Hives Verified 07/20/22 10:01 Penicillins Allergy Severe Anaphylaxsi Verified 07/20/22 10:01 s shellfish derived Allergy Severe Anaphylaxsi Verified 07/20/22 10:01 s Sulfa (Sulfonamide Allergy Severe Hives Verified 07/20/22 10:01 Antibiotics) nitrofurantoin Allergy Intermediate Skin Rash, Verified 07/20/22 10:01 anxiety, dry mouth General Stated Complaint: Nk/Back Pain REY: 3 Review of Systems All systems reviewed & are unremarkable except as noted in HPI and below Constitutional Constitutional: Denies chills and Denies weakness Eyes Eyes: Denies loss of vision ENT Ears, Nose, Mouth, and Throat: Denies change in voice Cardiovascular Cardiovascular: Denies chest pain and Denies dyspnea Respiratory Respiratory: Denies cough and Denies dyspnea Gastrointestinal Gastrointestinal: Denies abdominal pain, Denies nausea and Denies vomiting Musculoskeletal Musculoskeletal: Denies joint swelling Neurologic Neurologic: Denies loss of vision and Denies weakness Endocrine Endocrine: Denies cold intolerance PFSH All Active Problems (Updated 07/20/22 @ 12:28 by Aldair Herrera MD) Pain in throat (Acute) Neck pain (Acute) Migraine (Chronic) Vaginal irritation (Acute) Calculus of kidney (Chronic) Impacted cerumen, right ear (Acute) Bilateral carpal tunnel syndrome (Acute) PMDD (premenstrual dysphoric disorder) (Acute) H/O surgical procedure (Chronic) a. appendectomy b. colonoscopy c. endometrial biopsy d. tonsillectomy e. EGD - with MAC Obstructive [place] (Chronic) [place] [facility] [place] for approx. 1 year - has not used for 1 yr. 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 Nl testosterone and 17-OH-P4. [place] [facility] [place]. Benign mass on adrenal. Neg pheochromocytoma w/u. 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 Pruritic condition (Chronic 05/21/14) Vitamin D deficiency (Chronic 07/05/17) Adrenal benign tumor (Chronic) Renal colic (Chronic) Medical History Adrenal benign tumor [address] scan during w/u for elevated DHEAs. Had [place]l [place]o [place] [facility] [place] Expectant management. Anxiety Panic attacks. Somatic complaints. Dermatitis (07/17/16) Drug-induced nausea and vomiting Dysmenorrhea 2014 Nl pelvic u/s. Nl endometrial bx. Headache Kidney stone on right side Pelvic pain 2013 Episodic. GI w/u neg. 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 11/2015 recurrence of sx after 08/2015. Surgical History Appendectomy Colonoscopy - MAC 06[place]17/[place] [facility] [place] MAC 06[place]17[place] [facility] [place]ometrial Biopsy 08/18/14 [facility] History of appendectomy History of esophagogastroduodenoscopy History of gynecological procedure Status post tonsillectomy Surgery 08/25-kidney stone Tonsillectomy Family History Mother Depression Hyperlipidemia Father Diabetes Essential hypertension Heart disease Hyperlipidemia Maternal Grandfather Diabetes Hyperlipidemia Thyroid cancer Prostate cancer Liver cancer Paternal Grandfather Heart disease Asthma Maternal Grandmother , 73 Essential hypertension Hyperlipidemia Myeloma Bone cancer Paternal Grandmother , 79 Essential hypertension Myeloma Bone cancer Brother Substance abuse Son No problems noted. Son No problems noted. Daughter No problems noted. Social History Smoking/Tobacco Use Status: Current-Occasional Tobacco Type: cigarettes Second Hand Exposure: No Smoking risk assessment performed?: Yes Alcohol Intake: never Drug use: Never Substance use type: does not use Counseling given: No Counseling provided: none Caregiver/Support person: No Household members: spouse and children Housing: house Communication Needs: None Do you need help understanding health information?: Never Pets and animals: Yes Pets and animals: other Details: Chickens Sexually active: Yes Do you think of yourself as: straight/heterosexual Current gender identity: female What is your relationship status?: How often do you talk on the phone with friends or family?: three or more times per week How often do you get together with friends or relatives?: twice per week How often do you attend congregation or buddhist services?: 1-3 times per year Do you belong to any clubs or organized social groups?: no Panel score (0-1 are the most socially isolated patients): 2 What type of physical activity do you participate in: running Duration: 15-30 minutes/day Frequency: 3-4 times per week Vianney/Episcopal: No preference Special vianney needs: No Seatbelt use: always Helmet use: Yes Helmet use: always Drive intox or ride w/intox pizza driver: No Do you feel safe at home: Yes Do you feel safe in your relationship?: Yes Female Reproductive History Menstrual control method: other History History 4 Para 3 Hx # Term Pregnancies Multiple births Hx # Pregnancies Ectopic pregnancies AB induced Hx Number of Living Children AB spontaneous 1 Exam Const General: no acute distress Orientation: alert HENMT Head: normal to inspection Ears: external ears normal General nose exam: external nose normal Mouth: moist mucous membranes Eyes General: appearance normal, both eyes and all related structures Neck Neck: normal visual inspection, full ROM, no lymphadenopathy, no meningeal signs, trachea midline, supple, no anterior neck swelling and no JVD Resp Effort & Inspection: normal respiratory effort and able to speak in complete sentences Cardio Rate: regular rate Skin General skin exam: no rashes or lesions noted Neuro General: patient alert and patient oriented x3 Extrem General: normal to inspection Psych Mental Status: mental status grossly normal Course Vital Signs Vital signs: Vital Signs Temperature 36.5 C 07/20/22 09:55 Pulse 73 07/20/22 09:55 Respiratory Rate 16 07/20/22 09:55 Blood Pressure 112/64 07/20/22 09:55 Pulse Oximetry 98 07/20/22 09:55 Temperature 36.5 C 07/20/22 09:55 Temperature Source Temporal Artery Scan 07/20/22 09:55 Pulse 73 07/20/22 09:55 Respiratory Rate 16 07/20/22 09:55 Respiratory Effort Normal 07/20/22 09:59 Blood Pressure 112/64 07/20/22 09:55 Blood Pressure Position Sitting 07/20/22 09:55 Pulse Oximetry 98 07/20/22 09:55 Oxygen Delivery Method Room Air 07/20/22 09:55 Oxygen Flow Rate 0 07/20/22 09:55 Pain Level 7 07/20/22 09:55 PAWSS Have you Been Recently Intoxicated or Drunk Within the Last 30 days?: No Have you Ever Experienced Previous Episodes of Alcohol Withdrawal?: No Have you ever Experienced Withdrawal Seizures?: No Have you ever Experienced Delirium Tremens(DT)s?: No Have you ever undergone Alcohol Rehabilitation Treatment (i.e, inpt ot outpatient treatment programs)?: No Have you ever Experienced Blackouts?: No Have you ever Combined Alcohol with other Downers within the last 90 days?: No Have you ever Combined Alcohol with any other Substance of Abuse during the last 90 days?: No Result: 0
[2022-07-20 10:33] LABS: Abs Immature Grans 0.01 10^3/uL (0.0-0.06); Absolute Basophil Count 0.06 10^3/uL (0.0-0.2); Absolute Lymphocyte Count 1.29 10^3/uL (1.2-3.4); Absolute Monocyte Count 0.66 10^3/uL (0.1-0.8); Absolute Neutrophil Count 2.01 10^3/uL (1.2-6.7); Basophils % 1.4; Eosinophils % 4.7; HCT 42.5 % (36.0-46.0); Immature Grans % 0.2; Lymphocytes % 30.5; MCH 31.5 pg (27.0-33.0); MCHC 32.9 % (32.0-36.0); MCV 96 fL (80-95); MPV 10.4 fL (8.0-11.0); Monocytes % 15.6; Neutrophils % 47.6; Platelet Count 306 10^3/uL (130-400); RBC 4.45 10^6/uL (3.93-5.22); RDW 12.3 % (11.7-14.6); RDW-SD 43.1 fL; WBC 4.23 10^3/uL (4.4-10.8)
[2022-07-20] MEDS: Ketorolac 15 MG/ML VIAL IVP (10:37)
[2022-07-20] MEDS: Normal Saline 1,000 ML 1000 ML IV (10:38)
[2022-07-20 10:48] LABS: ALT 26 U/L (14-59); AST 16 U/L (15-37); Albumin 4.1 g/dL (3.4-5.0); Alkaline Phosphatase 73 U/L (46-116); Anion Gap 8.4 mmol/L (3-11); BUN 11 mg/dL (7-18); Bilirubin, Total 0.3 mg/dL (0.2-1.0); CO2 27.6 mmol/L (21.0-32.0); CREATININE 0.8 mg/dL (0.55-1.02); Calcium 9.1 mg/dL (8.5-10.1); Chloride 104 mmol/L (98-107); Estimated GFR 100.33 (mL/min/1.73m2); Glucose 91 mg/dL (74-106); Sodium 140 mmol/L (136-145); Total Protein 7.7 g/dL (6.4-8.2)
[2022-07-20] MEDS: Omnipaque 350 MG/ML 100 ML BTL IJ (11:46)
[2022-07-20] MEDS: Normal Saline - Diluent 50 ML VIAL IV (11:48)
[2022-07-20 12:38] LABS: TSH (W/Ref FT4) 1.19 uIU/mL (0.36-3.74)
[2022-07-20 12:47] VITALS: BP 113/74; PULSE 69; RESP 18; TEMP 36.8; O2SAT 99
== END 2022-07-20 12:45 | disposition home or self-care (01) ==
PROVIDERS: Emergency Provider Emergency Medicine; PCP Nurse Practitioner Family
DX: M54.2 Cervicalgia (principal); R07.0 Pain in throat
CPT/HCPCS: 36415; 70491; 80053; 96361; 96374; 99285; 84443; 85025; J1885; J3490

== ENCOUNTER 2022-07-25 13:07 | Outpatient (CLI) | payer MEDICAID, SELFPAY ==
[2022-07-25 22:58] LABS: Thyroglobulin Antibody <15 U/mL (<=60); Thyroperoxidase Antibody 136 U/mL (<=60)
== END 2022-07-25 13:08 | disposition home or self-care (01) ==
LOC: LBO 13:07
PROVIDERS: PCP Nurse Practitioner Family; Visit Provider Nurse Practitioner Family
DX: E04.1 Nontoxic single thyroid nodule (principal)
CPT/HCPCS: 36415; 86376

== ENCOUNTER 2022-07-28 00:29 | Outpatient (CLI) | payer MEDICAID, SELFPAY ==
--- NOTE | 2022-07-28 07:30 | DI.US_ITS ---
Exam(s) US THYROID EXAM: US THYROID CLINICAL HISTORY: incidental finding on ct of thyroid nodule,e04.1. TECHNIQUE: Ultrasound thyroid performed using standard protocol. COMPARISON: CT CT BRAIN NECK CTA from 05/19/[address] NECK W from 07/20/2022 FINDINGS: ISTHMUS: 4 mm RIGHT LOBE: Size: 5.5 x 2.4 x 2.9 cm Echogenicity: Normal. Vascularity: Normal. Nodules: 2 adjacent cysts measuring together 3.2 cm in length by 1.1 x 1.1 cm, corresponding to the C T abnormality. Two adjacent lymph nodes measuring together 2.3 x 0.4 x 1.1 cm. LEFT LOBE: Size: 4.0 x 1.4 x 1.7 cm cm Echogenicity: Normal. Vascularity: Normal. Nodules: None. OTHER FINDINGS: Lymph node measuring 1.7 cm in length. IMPRESSION: Cystic lesion in the right thyroid lobe corresponding to the abnormality seen on CT. TR 1 DATA REPOSITORY:
== END 2022-07-28 00:49 ==
LOC: DI 00:30
PROVIDERS: PCP Nurse Practitioner Family; Visit Provider Nurse Practitioner Family
DX: E04.1 Nontoxic single thyroid nodule (principal)
CPT/HCPCS: 76536

== ENCOUNTER 2022-08-02 11:51 | Outpatient (CLI) | payer MEDICAID, SELFPAY ==
[2022-08-02 10:49] LABS: FREE T4 0.96 ng/dL (0.76-1.46); TSH 1.01 uIU/mL (0.36-3.74)
[2022-08-02 19:34] LABS: Prolactin 15.3 ng/mL (See Note)
[2022-08-04 10:34] LABS: DHEA Sulfate 665 ug/dL (96-512)
[2022-08-04 17:46] LABS: Adrenocorticotropic Hormone, P 12 pg/mL
[2022-08-11 10:57] LABS: Testosterone, Free 0.83 ng/dL (<0.13-1.03); Testosterone, Total 30 ng/dL (8-60)
== END 2022-08-02 11:52 | disposition home or self-care (01) ==
LOC: LBO 11:52
PROVIDERS: PCP Nurse Practitioner Family; Visit Provider Student in an Organized Health Care Education/Training Program
DX: L68.0 Hirsutism (principal); E04.1 Nontoxic single thyroid nodule; R42 Dizziness and giddiness; F32.81 Premenstrual dysphoric disorder; E27.8 Other specified disorders of adrenal gland
CPT/HCPCS: 36415; 82533; 82627; 84402; 84403; 84410; 82024; 84146; 84439; 84443

== ENCOUNTER 2022-09-09 23:15 | Emergency (ER) | payer MEDICAID, SELFPAY ==
[2022-09-09 23:10] VITALS: BP 120/69; PULSE 75; RESP 16; TEMP 36.8; O2SAT 97
--- NOTE | 2022-09-09 23:24 | W.ED.GENAD ---
Discharge Plan Disposition Patient Disposition: Home Condition: Improving Discharge Details Chief Complaint: EyeProblem Clinical Impression: Viral illness Primary Care Provider: Serafin Guidry ED Provider: Omid Jackson Home Meds and New Rx's Prescriptions: No Action meclizine 25 mg tablet 25 mg PO BID PRN (Reason: dizziness) Qty: 10 0RF Rx Instructions: may take 1 tab every 12 hours as needed for nausea/vertigo rizatriptan [Maxalt-[employer]] 10 mg tablet,disintegrating 10 mg PO ONCE PRN (Reason: migraine headache) Qty: 10 0RF Rx Instructions: may repeat once after at least 2 hours omeprazole 20 mg capsule,delayed release(DR/EC) 20 mg PO DAILY Qty: 30 0RF ondansetron HCl 4 mg tablet 4 mg PO Q8H PRN (Reason: nausea and vomiting) Qty: 30 0RF benzonatate 100 mg capsule 100 mg PO TID PRN (Reason: cough) 7 Days Qty: 20 0RF magnesium oxide 400 MG capsule 400 mg PO DAILY cholecalciferol (vitamin D3) [Vitamin D3] 2,000 UNIT capsule 2,000 unit PO DAILY Patient Comments: 07-31-17 pt reports that she is no longer taking this med. hb fluoxetine 10 mg capsule 10 mg PO QAM Qty: 42 4RF Rx Instructions: take for 14 days PRIOR TO FIRST DAY OF MENSES every month. (14d monthly cycle for PMDD) #42 should be a 90 day supply albuterol sulfate [ProAir HFA] 90 mcg/actuation HFA aerosol inhaler 2 puff Inhalation Q4H PRN Qty: 8.5 3RF cyclobenzaprine 10 mg tablet 10 mg PO TID PRNQty: 20 0RF Discharge Instructions Instructions: Viral Syndrome (ED) Additional Instructions: Please follow-up with your primary care physician. Medical Decision Making 32-year-old female history of migraines with ocular involvement in the past, cough and congestion over the past several days, mild gradual onset headache, resting comfortably no acute distress afebrile nontoxic nonmeningeal cranial nerves II through XII intact 5 out of 5 strength upper and lower extremities, normal speech no ataxia, no respiratory distress no hypoxia no tachycardia. Patient is nontoxic. No current visual symptomatology. Has had brief resolved visual change in the past with prior migraines. Low suspicion for CVA or TIA low suspicion for central retinal artery occlusion or sinus venous thrombosis. Likely symptomatic viral URI with component of atypical migraine Will trial anti-inflammatory analgesics in the form of dexamethasone and Tylenol. Likely home with close follow-up. 00: 02 patient resting comfortably no acute distress feeling much better after dexamethasone. Vision 20/40 bilaterally. Patient wears glasses at baseline. HPI General Date/Time Provider Initiated Documentation: 09/09/22 23:22. HPI Narrative: 32-year-old female history of migraine headaches, recent URI symptoms including cough congestion, presents with mild persistent cough nonproductive, brief blurring of vision in bilateral eyes now resolved and gradual onset mild headache. Patient's migraine history in the past has had ocular involvement. No weakness numbness change in speech or difficulty walking. Related Data Home Medications Medication Instructions Recorded Confirmed magnesium oxide 400 mg PO DAILY 10/12/16 09/05/22 cholecalciferol (vitamin D3) 50 2,000 unit PO DAILY 07/06/17 09/05/22 mcg (2,000 unit) capsule (Vitamin D3) fluoxetine 10 mg capsule 10 mg PO QAM #42 caps 04/03/22 09/05/22 albuterol sulfate 90 mcg/actuation 2 puff inhalation Q4H PRN #8.5 05/29/22 09/05/22 aerosol inhaler (ProAir HFA) grams meclizine 25 mg tablet 25 mg PO BID PRN dizziness #10 tabs 06/19/22 09/05/22 rizatriptan 10 mg disintegrating 10 mg PO ONCE PRN migraine 06/27/22 09/05/22 tablet (Maxalt-[employer]) headache #10 tabs cyclobenzaprine 10 mg tablet 10 mg PO TID PRN #20 tabs 07/20/22 09/05/22 omeprazole 20 mg capsule,delayed 20 mg PO DAILY #30 caps 07/26/22 09/05/22 release ondansetron HCl 4 mg tablet 4 mg PO Q8H PRN nausea and 07/27/22 09/05/22 vomiting #30 tabs benzonatate 100 mg capsule 100 mg PO TID PRN cough 7 days #20 09/08/22 09/08/22 caps Previous Rx's Medication Instructions Recorded fluoxetine 10 mg capsule 10 mg PO QAM #42 caps 04/03/22 albuterol sulfate 90 mcg/actuation 2 puff inhalation Q4H PRN #8.5 05/29/22 aerosol inhaler (ProAir HFA) grams meclizine 25 mg tablet 25 mg PO BID PRN dizziness #10 tabs 06/19/22 rizatriptan 10 mg disintegrating 10 mg PO ONCE PRN migraine 06/27/22 tablet (Maxalt-[employer]) headache #10 tabs cyclobenzaprine 10 mg tablet 10 mg PO TID PRN #20 tabs 07/20/22 omeprazole 20 mg capsule,delayed 20 mg PO DAILY #30 caps 07/26/22 release ondansetron HCl 4 mg tablet 4 mg PO Q8H PRN nausea and 07/27/22 vomiting #30 tabs benzonatate 100 mg capsule 100 mg PO TID PRN cough 7 days #20 09/08/22 caps Allergies Allergy/AdvReac Type Severity Reaction Status Date / Time latex Allergy Severe Hives Verified 09/08/22 12:21 Penicillins Allergy Severe Anaphylaxsi Verified 09/08/22 12:21 s shellfish derived Allergy Severe Anaphylaxsi Verified 09/08/22 12:21 s Sulfa (Sulfonamide Allergy Severe Hives Verified 09/08/22 12:21 Antibiotics) nitrofurantoin Allergy Intermediate Skin Rash, Verified 09/08/22 12:21 anxiety, dry mouth General Stated Complaint: RespSymp REY: 3 Review of Systems Narrative: Review of Systems Constitutional: negative Eyes: negative ENT: negative Cardiovascular: negative Respiratory: Cough Gastrointestinal: negative : negative Musculoskeletal: negative Skin: negative Neurologic: Headache, visual changes Psych: negative PFSH All Active Problems (Updated 09/10/22 @ 00:03 by JUDI DELEON) Thyroid cyst (Acute) Vertigo (Acute) Thyroid nodule (Acute) Migraine (Chronic) Vaginal irritation (Acute) Calculus of kidney (Chronic) Impacted cerumen, right ear (Acute) Bilateral carpal tunnel syndrome (Acute) PMDD (premenstrual dysphoric disorder) (Acute) H/O surgical procedure (Chronic) a. appendectomy b. colonoscopy c. endometrial biopsy d. tonsillectomy e. EGD - with MAC Obstructive sleep ap[place] (Chronic) [place] [facility] [place] for approx. 1 year - has not used for 1 yr. 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 Nl testosterone and 17-OH-P4. 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 Benign mass on adrenal. Neg pheochromocytoma w/u. 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 Pruritic condition (Chronic 05/21/14) Vitamin D deficiency (Chronic 07/05/17) Adrenal benign tumor (Chronic) Renal colic (Chronic) Medical History Adrenal benign tumor [address] scan during w/u for elevated DHEAs. Had nl endo w/[place] [facility] [place] Expectant management. Anxiety Panic attacks. Somatic complaints. Dermatitis (07/17/16) Drug-induced nausea and vomiting Dysmenorrhea 2014 Nl pelvic u/s. Nl endometrial bx. Headache Kidney stone on right side Pelvic pain 2013 Episodic. GI w/u neg. 2014 Psych Arnp w/u neg. 11/2015 recurrence of sx after 08/2015. Surgical History Appendectomy Colonoscopy - MAC 06/17/14 [facility] [place]GD - MAC 06[place]17/14[place] [facility] [place]ometrial Biopsy 08/18/14 [facility] History of appendectomy History of esophagogastroduodenoscopy History of gynecological procedure Status post tonsillectomy Surgery 08/25-kidney stone Tonsillectomy Family History Mother Depression Hyperlipidemia Father Diabetes Essential hypertension Heart disease Hyperlipidemia Maternal Grandfather Diabetes Hyperlipidemia Thyroid cancer Prostate cancer Liver cancer Paternal Grandfather Heart disease Asthma Maternal Grandmother , 73 Essential hypertension Hyperlipidemia Myeloma Bone cancer Paternal Grandmother , 79 Essential hypertension Myeloma Bone cancer Brother Substance abuse Son No problems noted. Son No problems noted. Daughter No problems noted. Social History Smoking/Tobacco Use Status: Current-Occasional Tobacco Type: cigarettes Second Hand Exposure: No Smoking risk assessment performed?: Yes Alcohol Intake: never Drug use: Never Substance use type: does not use Counseling given: No Counseling provided: none Caregiver/Support person: No Household members: spouse and children Housing: house Communication Needs: None Do you need help understanding health information?: Never Pets and animals: Yes Pets and animals: other Details: Chickens Sexually active: Yes Do you think of yourself as: straight/heterosexual Current gender identity: female What is your relationship status?: How often do you talk on the phone with friends or family?: three or more times per week How often do you get together with friends or relatives?: twice per week How often do you attend adventist or spiritism services?: 1-3 times per year Do you belong to any clubs or organized social groups?: no Panel score (0-1 are the most socially isolated patients): 2 What type of physical activity do you participate in: running Duration: 15-30 minutes/day Frequency: 3-4 times per week Vianney/Sabianist: No preference Special vianney needs: No Seatbelt use: always Helmet use: Yes Helmet use: always Drive 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 Do you feel safe at home: Yes Do you feel safe in your relationship?: Yes Female Reproductive History Menstrual control method: other History History 4 Para 3 Hx # Term Pregnancies Multiple births Hx # Pregnancies Ectopic pregnancies AB induced Hx Number of Living Children AB spontaneous 1 Exam Narrative Exam Narrative: Physical Examination General: alert, awake, cooperative, resting comfortably, no acute distress HEENT: normocephalic, atraumatic; PERRL, EOM intact, conjunctiva normal; no nasal discharge; moist mucous membranes, oral and pharyngeal mucosa normal, tolerating secretions Neck: supple, trachea midline; full ROM Chest: normal to inspection Respiratory: normal respiratory effort, speaking in full sentences, clear to auscultation, no wheezing, rales or rhonchi Cardiac: regular rate, regular rhythm, S1S2 intact, no murmurs rubs or gallops GI: abdomen soft, non-tender, non-distended; no palpable mass or hepatosplenomegaly Skin: no lesions, rashes or trauma appreciated Neuro: AAOx3, normal speech, moving all extremities; cranial nerves II through XII intact, 5 out of 5 strength upper and lower extremities, normal speech, no ataxia Psych: Appropriate mood and affect Course Vital Signs Vital signs: Vital Signs Temperature 36.8 C 09/09/22 23:10 Pulse 75 09/09/22 23:10 Respiratory Rate 16 09/09/22 23:10 Blood Pressure 120/69 09/09/22 23:10 Pulse Oximetry 97 09/09/22 23:10 Temperature 36.8 C 09/09/22 23:10 Temperature Source Skin 09/09/22 23:10 Pulse 75 09/09/22 23:10 Respiratory Rate 16 09/09/22 23:10 Respiratory Effort Normal 09/09/22 23:18 Blood Pressure 120/69 09/09/22 23:10 Pulse Oximetry 97 09/09/22 23:10 Oxygen Delivery Method Room Air 09/09/22 23:10 Oxygen Flow Rate 0 09/09/22 23:10 Pain Level 5 09/09/22 23:10
[2022-09-09] MEDS: Dexamethasone 10 MG/ML VIAL IVP (23:30)
[2022-09-09] MEDS: Acetaminophen 325 MG TAB 650 MG PO (23:30)
[2022-09-10 00:07] VITALS: PULSE 75; RESP 16; O2SAT 96
== END 2022-09-10 00:08 | disposition home or self-care (01) ==
LOC: ER 09-10 00:15
PROVIDERS: Emergency Provider Emergency Medicine; PCP Nurse Practitioner Family
DX: B34.9 Viral infection, unspecified (principal)
CPT/HCPCS: 96374; 99284; J1100

== ENCOUNTER 2022-10-23 15:36 | Outpatient (REF) | payer MEDICAID, SELFPAY ==
--- NOTE | 2022-10-23 15:20 | PAPFT_PTH ---
PATIENT: Ree Moran LOC: [place] U#:[id number] AGE/SX: 32/F ROOM: RE10/23/[address]: Jazlyn Herrera NP : 1990 BED: DIS: 10/23/2022 SPEC #: [id number] RECD: 10/23/22 18:17 STATUS: JAMESJoaquin REQ #: [id number] NIKOS: 10/23/22 15:[address]: Sharon LEMON,Jazlyn DEPT: [facility] Cytology RECD BY: Rola Zapata ENTERED: 10/23/22 18:18 SP TYPE: PAPFT OTHR DR: Serafin Guidry NP Tissues: 1 - CX/ENDOCX FOR PAP SMEARS Procedures: PAP THIN PREP/UVM Screening HPV DNA PROBE Comments: [id number] (CHLAMYDIA/GC)
[2022-10-24 14:22] LABS: Chlamydia Result Negative (Negative); GC Result Negative (Negative)
== END 2022-10-23 15:37 | disposition home or self-care (01) ==
LOC: LBN 15:36
PROVIDERS: PCP Nurse Practitioner Family; Visit Provider Nurse Practitioner Women's Health
DX: Z11.3 Encounter for screening for infections with a predominantly sexual mode of transmission (principal); Z12.4 Encounter for screening for malignant neoplasm of cervix; Z11.51 Encounter for screening for human papillomavirus (HPV)
CPT/HCPCS: 87491; 87591; 88142; 87624

== ENCOUNTER 2022-10-30 01:04 | Outpatient (CLI) | payer MEDICAID, SELFPAY ==
--- NOTE | 2022-10-30 07:45 | DI.US_ITS ---
Exam(s) US AXILLA LT EXAM: US AXILLA LT CLINICAL HISTORY: ? Left axillary mass under skin,n60.09 TECHNIQUE: Ultrasound left axilla performed using standard protocol. COMPARISON: No exams were available for comparison FINDINGS: No solid or cystic masses, hypoechoic foci, areas of abnormal shadowing, or areas of skin thickening. There is a normal appearing lymph node seen in the left axilla measuring 2 x 0.8 x 1.0 cm. It does not correspond to the area of concern in the left axillar as indicated by the patient. IMPRESSION: No sonographically suspicious finding. DATA REPOSITORY:
== END 2022-10-30 01:24 ==
LOC: DI 01:04
PROVIDERS: PCP Nurse Practitioner Family; Visit Provider Nurse Practitioner Family
DX: N60.02 Solitary cyst of left breast (principal)
CPT/HCPCS: 76642

== ENCOUNTER 2022-11-01 05:24 | Outpatient (CLI) | payer MEDICAID, SELFPAY ==
[2022-11-01 22:31] LABS: Estradiol 30 pg/mL (See Note)
[2022-11-01 22:38] LABS: FSH 8.5 mIU/mL (See Note)
== END 2022-11-01 05:25 | disposition home or self-care (01) ==
LOC: LBO 05:24
PROVIDERS: Obstetrics & Gynecology; PCP Nurse Practitioner Family; Visit Provider Nurse Practitioner Women's Health
DX: R61 Generalized hyperhidrosis (principal)
CPT/HCPCS: 36415; 82670; 83001

== ENCOUNTER 2022-12-06 02:42 | Outpatient (CLI) | payer MEDICAID, SELFPAY ==
[2022-12-06 08:03] LABS: Anion Gap 7.4 mmol/L (3-11); BUN 12 mg/dL (7-18); CO2 28.6 mmol/L (21.0-32.0); CREATININE 0.8 mg/dL (0.55-1.02); Calcium 9.2 mg/dL (8.5-10.1); Chloride 103 mmol/L (98-107); Estimated GFR 99.71 (mL/min/1.73m2); Glucose 84 mg/dL (74-106); Magnesium 1.9 mg/dL (1.8-2.4); Potassium 3.9 mmol/L (3.5-5.1); Sodium 139 mmol/L (136-145)
[2022-12-14 17:28] LABS: PTH AB NEGATIVE (NEGATIVE)
== END 2022-12-06 02:43 | disposition home or self-care (01) ==
LOC: LBO 02:42
PROVIDERS: PCP Nurse Practitioner Family; Visit Provider Nurse Practitioner Family
DX: N20.0 Calculus of kidney (principal)
CPT/HCPCS: 36415; 80048; 83519; 83735

== ENCOUNTER 2022-12-07 01:25 | Outpatient (CLI) | payer MEDICAID, SELFPAY ==
--- NOTE | 2022-12-07 09:15 | DI.US_ITS ---
Exam(s) US RENAL EXAM: US RENAL CLINICAL HISTORY: KIDNEY STONE, N20.0; H/O NEPHROLITHIASIS. TECHNIQUE: Mckenzie scale, color and spectral Doppler were used. COMPARISON: US US RENAL from 12/26/2021 FINDINGS: Renal size in cm: Right: 11.0 left: 11.4 Echogenicity: Normal Hydronephrosis: No Cyst or mass: No Nephrolithiasis: Shadowing focus noted at the lower pole of the right kidney which is measured at 7 m illimeters in greatest dimension. No additional calculi are visible. (Tiny bilateral calculi noted noted on 2017 CT.) Bladder:Normal , both ureteral jets are visualized. Prevoid vol: 130 Postvoid vol: 10 IMPRESSION: Right nephrolithiasis. No evidence of hydronephrosis. DATA REPOSITORY:
== END 2022-12-07 01:45 ==
LOC: DI 01:25
PROVIDERS: PCP Nurse Practitioner Family; Visit Provider Nurse Practitioner
DX: N20.0 Calculus of kidney (principal)
CPT/HCPCS: 76770

== ENCOUNTER 2023-02-12 09:12 | Emergency (ER) | payer OTHER, SELFPAY ==
[2023-02-12 09:15] VITALS: BP 125/67; PULSE 73; TEMP 36.8; O2SAT 99
[2023-02-12 09:39] LABS: Bilirubin Negative (Negative); Blood Negative (Negative); Clarity Clear (Clear); Glucose Negative (Negative); Ketones Negative (Negative); Leukocyte Esterase Negative (Negative); Nitrite Negative (Negative); Specific Gravity 1.015 (1.005-1.025); Urobilinogen 0.2 mg/dL (Up to 0.2); pH 7.5 (5-8)
--- NOTE | 2023-02-12 09:42 | ED.GENADUL_ITS ---
Discharge Plan Disposition Patient Disposition: Home Discharge Details Clinical Impression: Gastroenteritis Primary Care Provider: Serafin Guidry ED Provider: Marquise Calderon Meds and New Rx's Prescriptions: New ondansetron 4 mg tablet,disintegrating 4 mg PO BID-TID PRN (Reason: nausea and vomiting) Qty: 20 0RF Continued meclizine 25 mg tablet 25 mg PO BID PRN (Reason: dizziness) Qty: 10 0RF Patient Comments: PT states not taking 02/12/23 ML Rx Instructions: may take 1 tab every 12 hours as needed for nausea/vertigo rizatriptan [Maxalt-ENTRY LEVEL PROGRAMMER] 10 mg tablet,disintegrating 10 mg PO ONCE PRN (Reason: migraine headache) Qty: 10 0RF Rx Instructions: may repeat once after at least 2 hours ondansetron HCl 4 mg tablet 4 mg PO Q8H PRN (Reason: nausea and vomiting) Qty: 30 0RF albuterol sulfate [ProAir HFA] 90 mcg/actuation HFA aerosol inhaler 2 puff Inhalation Q4H PRN Qty: 8.5 3RF cyclobenzaprine 10 mg tablet 10 mg PO TID PRNQty: 20 0RF Patient Comments: Pt not taking 02/12/23 ML magnesium 200 mg Tablet 400 mg PO DAILY cholecalciferol (vitamin D3) [Vitamin D3] 25 mcg (1,000 unit) Tablet 25 mcg PO DAILY Discharge Instructions Instructions: Gastroenteritis (ED) Discharge Data Discharge Physician: Marquise Calderon Medical Decision Making MDM: Summary: Patient presents with 2 days of nausea vomiting diarrhea. She had IV fluids given and Zofran with significant improvement. Labs were done which are insignificant and no abnormality noted. Patient states her dizziness has resolved and is able to drink fluids and will be discharged home Data Review Analysis All the data on this patient was reviewed by me including laboratory and imaging studies as well as bedside studies performed by me Independent review of Studies Imaging Lab: CBC and chemistries were done as well as a test. Was negative CBC and electrolytes are normal Risk Stratification: Differential Diagnosis: 1. Viral gastroenteritis 2. Bacterial gastroenteritis 3. C. difficile colitis 4. Dehydration 5. Consultants: Patient understands and will be discharged home with Zofran Shared disposition: Impression: HPI General Date/Time Provider Initiated Documentation: 09/04/23 09:42 . HPI Narrative: Patient presents to the emergency department complaining of nausea vomiting and diarrhea. States the diarrhea started about 2 days ago and states that today she has been very thirsty and had episodes of nausea and vomiting and was not tolerating p.o. fluids and got kind of fuzzy so the reason she brought to the emergency department for evaluation. Denies any abdominal pain Related Data Home Medications Medication Instructions Recorded Confirmed albuterol sulfate 90 mcg/actuation 2 puff inhalation Q4H PRN #8.5 05/29/22 02/12/23 aerosol inhaler (ProAir HFA) grams meclizine 25 mg tablet 25 mg PO BID PRN dizziness #10 tabs 06/19/22 12/01/22 rizatriptan 10 mg disintegrating 10 mg PO ONCE PRN migraine 06/27/22 02/12/23 tablet (Maxalt-ENTRY LEVEL PROGRAMMER) headache #10 tabs cyclobenzaprine 10 mg tablet 10 mg PO TID PRN #20 tabs 07/20/22 12/01/22 ondansetron HCl 4 mg tablet 4 mg PO Q8H PRN nausea and 07/27/22 02/12/23 vomiting #30 tabs cholecalciferol (vitamin D3) 25 25 mcg PO DAILY 02/12/23 02/12/23 mcg (1,000 unit) tablet (Vitamin D3) magnesium 200 mg tablet 400 mg PO DAILY 02/12/23 02/12/23 ondansetron 4 mg disintegrating 4 mg PO BID-TID PRN nausea and 02/12/23 tablet vomiting #20 tabs Previous Rx's Medication Instructions Recorded albuterol sulfate 90 mcg/actuation 2 puff inhalation Q4H PRN #8.5 05/29/22 aerosol inhaler (ProAir HFA) grams meclizine 25 mg tablet 25 mg PO BID PRN dizziness #10 tabs 06/19/22 rizatriptan 10 mg disintegrating 10 mg PO ONCE PRN migraine 06/27/22 tablet (Maxalt-ENTRY LEVEL PROGRAMMER) headache #10 tabs cyclobenzaprine 10 mg tablet 10 mg PO TID PRN #20 tabs 07/20/22 ondansetron HCl 4 mg tablet 4 mg PO Q8H PRN nausea and 07/27/22 vomiting #30 tabs ondansetron 4 mg disintegrating 4 mg PO BID-TID PRN nausea and 02/12/23 tablet vomiting #20 tabs Allergies Allergy/AdvReac Type Severity Reaction Status Date / Time latex Allergy Severe Hives Verified 02/12/23 09:19 Penicillins Allergy Severe Anaphylaxsi Verified 02/12/23 09:19 s shellfish derived Allergy Severe Anaphylaxsi Verified 02/12/23 09:19 s Sulfa (Sulfonamide Allergy Severe Hives Verified 02/12/23 09:19 Antibiotics) nitrofurantoin Allergy Intermediate Skin Rash, Verified 02/12/23 09:19 anxiety, dry mouth General Stated Complaint: Nausea/Vomit/Diar REY: 3 Review of Systems Narrative: Review of Systems: Constitutional: No fevers, chills, sweats Eye: No recent visual problems ENT: No ear pain, nasal congestion, sore throat Respiratory: No shortness of breath, cough Cardiovascular: No Chest pain, palpitations, syncope Genitourinary: No hematuria Dominic/Lymph: Negative for bruising tendency, swollen lymph glands Endocrine: Negative for excessive thirst, excessive hunger Musculoskeletal: No back pain, neck pain, joint pain, muscle pain, decreased range of motion Integumentary: No rash, pruritus, abrasions Neurologic: Alert & oriented X 4 Psychiatric: No anxiety, depression PFSH All Active Problems (Updated 02/12/23 @ 12:40 by Marquise Calderon MD) Gastroenteritis (Acute) Renal colic (Chronic) Vitamin D deficiency (Chronic 07/05/17) Hx of allergy to shellfish (Chronic 07/05/17) Migraine (Chronic) Night sweats (Acute) Medical History Abnormal auditory perception (05/21/14) Adrenal benign tumor [address] scan during w/u for elevated DHEAs. Had nl endo w/u at [facility] (nl Test and 17OHP). Expectant management. Anxiety Panic attacks. Somatic complaints. Bilateral carpal tunnel syndrome Calculus of kidney Dermatitis (07/17/16) Drug-induced nausea and vomiting Dysmenorrhea 2014 Nl pelvic u/s. Nl endometrial bx. Elevated dehydroepiandrosterone sulfate level (11/06/13) Pt had eval for facial hirsuitism. Nl testosterone and 17-OH-P4. Eval by [facility] stars coordinator. Benign mass on adrenal. Neg pheochromocytoma w/u. 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 [place] Obstructive sleep apnea Dx 2017 - [facility] Used CPAP for approx. 1 year - has not used for 1 yr. as of 01/06/19 Pelvic pain 2014 Episodic. GI w/u neg. 2014 Sectionizer w/u neg. 11/2015 recurrence of sx after 08/2015. PMDD (premenstrual dysphoric disorder) Thyroid cyst Thyroid nodule Unspecified hemorrhoids (07/05/17) Vertigo Surgical History Appendectomy Colonoscopy - MAC 06/17/14 [facility] EGD - MAC 06/17/14- [facility] Endometrial Biopsy 08/18/14 [facility] H/O surgical procedure a. appendectomy b. colonoscopy c. endometrial biopsy d. tonsillectomy e. EGD - with [facility] History of appendectomy History of esophagogastroduodenoscopy History of gynecological procedure Status post tonsillectomy Surgery 08/25-kidney stone Tonsillectomy Family History Mother Depression Hyperlipidemia Colon cancer Multiple sclerosis Father Diabetes Essential hypertension Heart disease Hyperlipidemia Maternal Grandfather Diabetes Hyperlipidemia Thyroid cancer Prostate cancer Liver cancer Paternal Grandfather Heart disease Asthma Maternal Grandmother , 73 Essential hypertension Hyperlipidemia Myeloma Bone cancer Paternal Grandmother , 79 Essential hypertension Myeloma Bone cancer Brother Substance abuse Son No problems noted. Son No problems noted. Daughter No problems noted. Social History Smoking/Tobacco Use Status: Never Second Hand Exposure: No Smoking risk assessment performed?: Yes Alcohol Intake: never Drug use: Never Substance use type: does not use Counseling given: No Counseling provided: none Caregiver/Support person: No Household members: spouse and children Housing: house Communication Needs: None Do you need help understanding health information?: Never Pets and animals: Yes Pets and animals: other Details: Chickens Sexually active: Yes Do you think of yourself as: straight/heterosexual Current gender identity: female What is your relationship status?: How often do you talk on the phone with friends or family?: three or more times per week How often do you get together with friends or relatives?: once per week How often do you attend holiness or anabaptist services?: 1-3 times per year Do you belong to any clubs or organized social groups?: no Panel score (0-1 are the most socially isolated patients): 2 What type of physical activity do you participate in: running Duration: 15-30 minutes/day Frequency: 3-4 times per week Vianney/Muslim: No preference Special vianney needs: No Seatbelt use: always Helmet use: Yes Helmet use: always Drive intox or ride w/intox hog driver: No Do you feel safe at home: Yes Do you feel safe in your relationship?: Yes Female Reproductive History Menstrual control method: other (partner with vasectomy) History History 4 Para 3 Hx # Term Pregnancies Multiple births Hx # Pregnancies Ectopic pregnancies AB induced Hx Number of Living Children AB spontaneous 1 Exam Narrative Exam Narrative: Exam; vitals signs as reported above normal Constitutional; In no acute distress, afebrile General: cooperative, healthy appearing, comfortable and no acute distress HEENT: Head: normal to inspection, no palpable skull fracture and normocephalic atraumatic Eyes: : appearance normal, both eyes and all related structures EOM intact bilaterally Pupils: PERRL : conjunctiva normal Direct ophthalmoscopy: normal light reflex, normal conjunctiva, normal visual acuity Ears: Normal TM, normal external canal Neck no JVD, supple non tender Neck: normal visual inspection, full ROM and no lymphadenopathy Chest: normal inspection of the chest Respiratory : normal respiratory effort and able to speak in complete sentences no wheezing no rales Cardio Rate: regular rate, rhythm: regular rhythm normal heart sounds S1 and S2 no murmurs, gallops, or rubs GI : normal to inspection, normal bowel sounds, soft, non tender, non distended, no organomegaly Back/Spine/ no CVA tenderness Thoracic/Lumbar Spine: no tenderness or deformities Skin no rashes or lesions Neuro: patient alert and no meningeal signs, Cranial Nerves: CN's II-XI intact bilaterally, Cognition: normal cognition, Speech: speech normal, Gait: normal gait, Depp tendon reflexes normal 2+ muscle strength 5/5 bilaterally Extremities, no edema, full range of motion, normal strength d Course Vital Signs Vital signs: Vital Signs Temperature 36.8 C 02/12/23 09:15 Pulse 73 02/12/23 09:15 Blood Pressure 125/67 02/12/23 09:15 Pulse Oximetry 99 02/12/23 09:15 Temperature 36.8 C 02/12/23 09:15 Temperature Source Oral 02/12/23 09:15 Pulse 73 02/12/23 09:15 Blood Pressure 125/67 02/12/23 09:15 Blood Pressure Position Sitting 02/12/23 09:15 Pulse Oximetry 99 02/12/23 09:15 Oxygen Delivery Method Room Air 02/12/23 09:15 Oxygen Flow Rate 0 02/12/23 09:15 Pain Level 7 02/12/23 09:15 Lab/Test Results Lab/Test Results: Laboratory Tests Range/Units 02/12/23 09:30 Urine Color (Yellow) Yellow Urine Clarity (Clear) Clear Urine pH (5-8) 7.5 Ur Specific [place] (1.005-1.025) 1.015 Urine Protein (Negative) mg/dL Negative Urine Ketones (Negative) mg/dL Negative Urine Blood (Negative) Negative Urine Nitrite (Negative) Negative Urine Bilirubin (Negative) Negative Urine Urobilinogen (Up to 0.2) mg/dL 0.2 Ur Leukocyte Esterase (Negative) Negative Urine Glucose (Negative) mg/dL Negative POC- Test(urine) Negative
[2023-02-12] MEDS: Normal Saline 1,000 ML 1000 ML IV (09:55)
[2023-02-12 09:57] VITALS: BP 125/67; PULSE 71
[2023-02-12] MEDS: Ondansetron 4 MG/2 ML VIAL IVP (09:58)
[2023-02-12 10:04] LABS: Abs Immature Grans 0.02 10^3/uL (0.0-0.06); Absolute Basophil Count 0.06 10^3/uL (0.0-0.2); Absolute Eosinophil Count 0.14 10^3/uL (0.0-0.7); Absolute Lymphocyte Count 1.77 10^3/uL (1.2-3.4); Absolute Monocyte Count 0.57 10^3/uL (0.1-0.8); Absolute Neutrophil Count 6.27 10^3/uL (1.2-6.7); Basophils % 0.7; Eosinophils % 1.6; HCT 41.9 % (36.0-46.0); HGB 14.2 g/dL (11.2-15.7); Immature Grans % 0.2; MCH 31.8 pg (27.0-33.0); MCHC 33.9 % (32.0-36.0); MCV 94 fL (80-95); MPV 10.5 fL (8.0-11.0); Monocytes % 6.5; Platelet Count 353 10^3/uL (130-400); RBC 4.46 10^6/uL (3.93-5.22); RDW-SD 41.7 fL; WBC 8.83 10^3/uL (4.4-10.8)
[2023-02-12 10:19] LABS: ALT 17 U/L (14-59); AST 9 U/L (15-37); Albumin 4.1 g/dL (3.4-5.0); Alkaline Phosphatase 71 U/L (46-116); Anion Gap 11.8 mmol/L (3-11); BUN 13 mg/dL (7-18); Bilirubin, Total 0.4 mg/dL (0.2-1.0); CO2 24.2 mmol/L (21.0-32.0); CREATININE 0.7 mg/dL (0.55-1.02); Calcium 9.1 mg/dL (8.5-10.1); Chloride 103 mmol/L (98-107); Estimated GFR 117.04 (mL/min/1.73m2); Glucose 89 mg/dL (74-106); Magnesium 1.8 mg/dL (1.8-2.4); Potassium 3.8 mmol/L (3.5-5.1); Sodium 139 mmol/L (136-145); Total Protein 7.8 g/dL (6.4-8.2)
== END 2023-02-12 12:59 | disposition home or self-care (01) ==
PROVIDERS: Emergency Provider Emergency Medicine Emergency Medical Services; PCP Nurse Practitioner Family
DX: K52.9 Noninfective gastroenteritis and colitis, unspecified (principal); Z20.822 Contact with and (suspected) exposure to COVID-19
CPT/HCPCS: 36415; 80053; 81025; 87426; 99283; 81003; 83735; 85025; J2405

== ENCOUNTER 2023-04-10 03:13 | Outpatient (CLI) | payer OTHER, SELFPAY ==
[2023-04-10 12:40] LABS: C-Reactive Protein < 0.05 mg/dL (0.0-0.3)
[2023-04-11 09:42] LABS: Magnesium Random Urine 18.3 mg/dL (See Note)
[2023-04-11 10:54] LABS: HIV-1/2 Ag & Ab Screen Negative (Negative)
== END 2023-04-10 03:14 | disposition home or self-care (01) ==
LOC: LBO 03:14
PROVIDERS: PCP Nurse Practitioner Family; Visit Provider Nurse Practitioner
DX: E83.42 Hypomagnesemia (principal); Z11.4 Encounter for screening for human immunodeficiency virus [HIV]; R61 Generalized hyperhidrosis
CPT/HCPCS: 36415; 83735; 87389; 86140

== ENCOUNTER 2023-04-13 03:42 | Emergency (ER) | payer OTHER, SELFPAY ==
[2023-04-13 03:40] VITALS: BP 142/92; PULSE 72; RESP 16; TEMP 36.9; O2SAT 99
--- NOTE | 2023-04-13 04:00 | DI.CT_ITS ---
Exam(s) CT ABDOMEN PELVIS W EXAM: CT ABDOMEN PELVIS W CLINICAL HISTORY: lower abd pain, hx ovarian cyst and kidney stones. TECHNIQUE: Imaging Protocol: Axial computed tomography images with coronal and sagittal reformatted images were created and reviewed CONTRAST MATERIAL: Intravenous: Omnipaque 350 Contrast volume:100 ml Oral: no COMPARISON: CT ABD PELVIS WO CONTRAST from 04/27/2017 US US RENAL from 12/26/[address] BRAIN NECK CTA from 05/19/[address] CHEST PE CTA from 05/19/2022 FINDINGS: ABDOMEN and PELVIS: Lung Bases: Normal where visualized. Liver: Normal density. No measurable mass. Gallbladder and biliary tract: No radiodense calculus or dilation. Pancreas: Normal density. No abnormal calcifications or inflammatory process. No evidence of mass. Spleen: Normal. Kidneys: Normal size, contour and axis. Small bilateral renal calculi. No ureteral calculi. No obs tructive uropathy. No suspicious masses seen. Adrenal glands: No masses seen. Vasculature: Abdominal aorta non-dilated. Soft tissues: Tiny fatty umbilical hernia. Bladder: No gross wall thickening. No calculi.No focal mass. Bowel: No obstruction. No bowel wall thickening. Appendix normal. Peritoneal cavity: No ascites. No focal collection or mesenteric inflammatory response. Bones: Unremarkable for age. Reproductive organs: Within normal limits. Lymph nodes: Unremarkable. IMPRESSION:: Bilateral nonobstructing renal calculi. No ureteral or bladder calculi. RADIATION DOSE DELIVERED: Total DLP DATA REPOSITORY: All CT scans at this facility are submitted to the National Radiology Data Registry (NRDR) Dose Index Registry (DIR) with the [employer] (A[employer]). RADIATION OPTIMIZATION: All CT scans at this facility use at least one of these dose optimization te chniques: automated exposure control; mA and/or kV adjustment per patient size (includes targeted exa ms where dose is matched to clinical indication); or iterative reconstruction.
--- NOTE | 2023-04-13 04:00 | DI.RAD_ITS ---
Exam(s) XR CHEST 2V PA LATERAL EXAM: XR CHEST 2V PA LATERAL CLINICAL HISTORY: productive cough TECHNIQUE: 2D digital imaging was performed. COMPARISON: No exams were available for comparison FINDINGS: HEART: Normal size. Aorta: Not dilated. PULMONARY VASCULATURE: Normal. LUNGS: Clear. PLEURAL SPACE: No pleural effusion or pneumothorax. BONE:Unremarkable for age. IMPRESSION: No acute abnormality. DATA REPOSITORY: RADIATION DOSE DELIVERED:
--- NOTE | 2023-04-13 04:06 | W.ED.GENAD ---
Discharge Plan Disposition Patient Disposition: Home Condition: Improving Discharge Details Chief Complaint: Nk/Back Pain Clinical Impression: Back pain Primary Care Provider: Serafin Guidry ED Provider: mOid Jackson Home Meds and New Rx's Prescriptions: No Action meclizine 25 mg tablet 25 mg PO BID PRN (Reason: dizziness) Qty: 10 0RF Patient Comments: PT states not taking 9//23 ML Rx Instructions: may take 1 tab every 12 hours as needed for nausea/vertigo ondansetron HCl 4 mg tablet 4 mg PO Q8H PRN (Reason: nausea and vomiting) Qty: 30 0RF Lastacaft Once Daily Relief 0.25 % drops 1 drp ophthalmic (eye) DAILY PRN citalopram 10 mg tablet 10 mg PO DAILY Qty: 60 0RF albuterol sulfate [ProAir HFA] 90 mcg/actuation HFA aerosol inhaler 2 puff Inhalation Q4H PRN Qty: 8.5 3RF cyclobenzaprine 10 mg tablet 10 mg PO TID PRNQty: 20 0RF Patient Comments: Pt not taking 02/12/23 ML magnesium 200 mg Tablet 400 mg PO DAILY cholecalciferol (vitamin D3) [Vitamin D3] 25 mcg (1,000 unit) Tablet 25 mcg PO DAILY ondansetron 4 mg tablet,disintegrating 4 mg PO BID-TID PRN (Reason: nausea and vomiting) Qty: 20 0RF Discharge Instructions Instructions: Back Pain (ED) Medical Decision Making 32-year-old female history of ovarian cyst, kidney stones, presents with lower back pain and abdominal pain, also endorses productive cough, recent family member with bacterial pneumonia. Patient afebrile nontoxic no respiratory distress hemodynamically stable. Consider recurrent ovarian cyst versus kidney stone versus pyelonephritis versus UTI versus lower lobe pneumonia lower suspicion for ACS or PE. Screening labs imaging fluids analgesia close reassess 5: 53 Labs imaging largely unremarkable. Patient still symptomatic with bilateral lower back discomfort. Patient now endorses a history of DVT, family history of DVT and PE. Consider musculoskeletal back pain versus thromboembolic phenomenon. Will obtain CT chest PE study. Fluid bolus given this will be her second contrast study today. Patient does have good kidney function. 7: 02 CT chest negative for PE. Patient hemodynamically stable resting comfortably HPI General Date/Time Provider Initiated Documentation: 11/03/23 04:04. HPI Narrative: 32-year-old female history of kidney stones, ovarian cyst, presents with lower abdominal discomfort and productive cough pain worse in the back. Related Data Home Medications Medication Instructions Recorded Confirmed albuterol sulfate 90 mcg/actuation 2 puff inhalation Q4H PRN #8.5 05/29/22 04/13/23 aerosol inhaler (ProAir HFA) grams meclizine 25 mg tablet 25 mg PO BID PRN dizziness #10 tabs 06/19/22 04/13/23 cyclobenzaprine 10 mg tablet 10 mg PO TID PRN #20 tabs 07/20/22 04/13/23 ondansetron HCl 4 mg tablet 4 mg PO Q8H PRN nausea and 07/27/22 04/13/23 vomiting #30 tabs cholecalciferol (vitamin D3) 25 25 mcg PO DAILY 02/12/23 04/13/23 mcg (1,000 unit) tablet (Vitamin D3) magnesium 200 mg tablet 400 mg PO DAILY 02/12/23 04/13/23 ondansetron 4 mg disintegrating 4 mg PO BID-TID PRN nausea and 02/12/23 04/13/23 tablet vomiting #20 tabs citalopram 10 mg tablet 10 mg PO DAILY #60 tabs 03/12/23 04/13/23 alcaftadine 0.25 % eye drops 1 drp ophthalmic (eye) DAILY PRN 03/15/23 04/13/23 (Lastacaft Once Daily Relief) Previous Rx's Medication Instructions Recorded albuterol sulfate 90 mcg/actuation 2 puff inhalation Q4H PRN #8.5 05/29/22 aerosol inhaler (ProAir HFA) grams meclizine 25 mg tablet 25 mg PO BID PRN dizziness #10 tabs 06/19/22 cyclobenzaprine 10 mg tablet 10 mg PO TID PRN #20 tabs 07/20/22 ondansetron HCl 4 mg tablet 4 mg PO Q8H PRN nausea and 07/27/22 vomiting #30 tabs ondansetron 4 mg disintegrating 4 mg PO BID-TID PRN nausea and 02/12/23 tablet vomiting #20 tabs citalopram 10 mg tablet 10 mg PO DAILY #60 tabs 03/12/23 Allergies Allergy/AdvReac Type Severity Reaction Status Date / Time latex Allergy Severe Hives Verified 04/13/23 05:57 Penicillins Allergy Severe Anaphylaxsi Verified 04/13/23 05:57 s shellfish derived Allergy Severe Anaphylaxsi Verified 04/13/23 05:57 s Sulfa (Sulfonamide Allergy Severe Hives Verified 04/13/23 05:57 Antibiotics) nitrofurantoin Allergy Intermediate Skin Rash, Verified 04/12/23 11:13 anxiety, dry mouth General Stated Complaint: Nk/Back Pain REY: 3 Review of Systems Narrative: Review of Systems Constitutional: negative Eyes: negative ENT: negative Cardiovascular: negative Respiratory: negative Gastrointestinal: Abdominal pain, back pain : negative Musculoskeletal: negative Skin: negative Neurologic: negative Psych: negative PFSH All Active Problems (Updated 04/13/23 @ 07:02 by Omid Jackson MD) Back pain (Acute) Cough (Acute) Back pain (Acute) Impacted cerumen, left ear (Acute) Renal colic (Chronic) Vitamin D deficiency (Chronic 07/05/17) Hx of allergy to shellfish (Chronic 07/05/17) Migraine (Chronic) Night sweats (Acute) Medical History Abnormal auditory perception (05/21/14) Adrenal benign tumor [address] scan during w/u for elevated DHEAs. Had nl endo w/u at [facility] (nl Test and 17OHP). Expectant management. Anxiety Panic attacks. Somatic complaints. Bilateral carpal tunnel syndrome Calculus of kidney Dermatitis (07/17/16) Drug-induced nausea and vomiting Dysmenorrhea 2014 Nl pelvic u/s. Nl endometrial bx. Elevated dehydroepiandrosterone sulfate level (11/06/13) Pt had eval for facial hirsuitism. Nl testosterone and 17-OH-P4. 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 Benign mass on adrenal. Neg pheochromocytoma w/u. 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 [place] Obstructive sleep apnea Dx 2016 - [facility] Used CPAP for approx. 1 year - has not used for 1 yr. as of 01/06/19 Pelvic pain 2014 Episodic. GI w/u neg. 2014 Telemetry Registered Nurse w/u neg. 11/2015 recurrence of sx after 08/2015. PMDD (premenstrual dysphoric disorder) Thyroid cyst Thyroid nodule Unspecified hemorrhoids (07/05/17) Vertigo Surgical History Appendectomy Colonoscopy - MAC 06/17/14 [facility] EGD - MAC 06/17/14- [facility] Endometrial Biopsy 08/18/14 [facility] H/O surgical procedure a. appendectomy b. colonoscopy c. endometrial biopsy d. tonsillectomy e. EGD - with MAC History of appendectomy History of esophagogastroduodenoscopy History of gynecological procedure Status post tonsillectomy Surgery 08/25-kidney stone Tonsillectomy Family History Mother Depression Hyperlipidemia Colon cancer Multiple sclerosis Father Diabetes Essential hypertension Heart disease Hyperlipidemia Maternal Grandfather Diabetes Hyperlipidemia Thyroid cancer Prostate cancer Liver cancer Paternal Grandfather Heart disease Asthma Maternal Grandmother , 73 Essential hypertension Hyperlipidemia Myeloma Bone cancer Paternal Grandmother , 79 Essential hypertension Myeloma Bone cancer Brother Substance abuse Son No problems noted. Son No problems noted. Daughter No problems noted. Social History Smoking/Tobacco Use Status: Never Second Hand Exposure: No Smoking risk assessment performed?: Yes Alcohol Intake: never Drug use: Never Substance use type: does not use Counseling given: No Counseling provided: none Caregiver/Support person: No Household members: spouse and children Housing: house Communication Needs: None Do you need help understanding health information?: Never Pets and animals: Yes Pets and animals: other Details: Chickens Sexually active: Yes Do you think of yourself as: straight/heterosexual Current gender identity: female What is your relationship status?: How often do you talk on the phone with friends or family?: three or more times per week How often do you get together with friends or relatives?: once per week How often do you attend gnosticism or samaritan services?: 1-3 times per year Do you belong to any clubs or organized social groups?: no Panel score (0-1 are the most socially isolated patients): 2 What type of physical activity do you participate in: running Duration: 15-30 minutes/day Frequency: 3-4 times per week Vianney/Jew: No preference Special vianney needs: No Seatbelt use: always Helmet use: Yes Helmet use: always Drive intox or ride w/intox putaway driver: No Do you feel safe at home: Yes Do you feel safe in your relationship?: Yes Female Reproductive History Menstrual control method: other (partner with vasectomy) History History 4 Para 3 Hx # Term Pregnancies Multiple births Hx # Pregnancies Ectopic pregnancies AB induced Hx Number of Living Children AB spontaneous 1 Exam Narrative Exam Narrative: Physical Examination General: alert, awake, cooperative, resting comfortably, no acute distress HEENT: normocephalic, atraumatic; PERRL, EOM intact, conjunctiva normal; no nasal discharge; moist mucous membranes, oral and pharyngeal mucosa normal, tolerating secretions Neck: supple, trachea midline; full ROM Chest: normal to inspection Respiratory: normal respiratory effort, speaking in full sentences, clear to auscultation, no wheezing, rales or rhonchi Cardiac: regular rate, regular rhythm, S1S2 intact, no murmurs rubs or gallops GI: abdomen soft, non-tender, non-distended; no palpable mass or hepatosplenomegaly Skin: no lesions, rashes or trauma appreciated Neuro: AAOx3, normal speech, moving all extremities Psych: Appropriate mood and affect Course Vital Signs Vital signs: Vital Signs Temperature 36.9 C 04/13/23 03:40 Pulse 72 04/13/23 03:40 Respiratory Rate 16 04/13/23 03:40 Blood Pressure 142/92 H 04/13/23 03:40 Pulse Oximetry 99 04/13/23 03:40 Temperature 36.9 C 04/13/23 03:40 Temperature Source Tympanic 04/13/23 03:40 Pulse 72 04/13/23 03:40 Respiratory Rate 16 04/13/23 03:40 Respiratory Effort Normal 04/13/23 03:42 Blood Pressure 142/92 H 04/13/23 03:40 Blood Pressure Position Sitting 04/13/23 03:40 Pulse Oximetry 99 04/13/23 03:40 Oxygen Delivery Method Room Air 04/13/23 03:40 Oxygen Flow Rate 0 04/13/23 03:40 Pain Level 7 04/13/23 03:40
[2023-04-13] MEDS: Ondansetron 4 MG/2 ML VIAL IVP (04:27)
[2023-04-13 04:28] LABS: Abs Immature Grans 0.02 10^3/uL (0.0-0.06); Absolute Basophil Count 0.07 10^3/uL (0.0-0.2); Absolute Eosinophil Count 0.23 10^3/uL (0.0-0.7); Absolute Lymphocyte Count 1.96 10^3/uL (1.2-3.4); Absolute Monocyte Count 0.61 10^3/uL (0.1-0.8); Absolute Neutrophil Count 3.61 10^3/uL (1.2-6.7); Basophils % 1.1; Eosinophils % 3.5; HCT 38.4 % (36.0-46.0); HGB 12.9 g/dL (11.2-15.7); Immature Grans % 0.3; Lymphocytes % 30.2; MCH 31.9 pg (27.0-33.0); MCHC 33.6 % (32.0-36.0); MCV 95 fL (80-95); MPV 10.3 fL (8.0-11.0); Monocytes % 9.4; Neutrophils % 55.5; Platelet Count 329 10^3/uL (130-400); RBC 4.04 10^6/uL (3.93-5.22); RDW 11.9 % (11.7-14.6); RDW-SD 41.6 fL
[2023-04-13] MEDS: Normal Saline 1,000 ML 1000 ML IV ×2 (04:28→06:01)
[2023-04-13] MEDS: Ketorolac 15 MG/ML VIAL IVP (04:28)
[2023-04-13 04:37] LABS: Bilirubin Negative (Negative); Blood Large (Negative); Clarity Clear (Clear); Glucose Negative (Negative); Ketones Negative (Negative); Leukocyte Esterase Trace (Negative); Nitrite Negative (Negative); Specific Gravity 1.015 (1.005-1.025); Urobilinogen 0.2 mg/dL (Up to 0.2)
[2023-04-13 04:39] LABS: Lipase 41 U/L (16-77)
[2023-04-13 04:39] LABS: Bacteria Rare HPF (Negative); C & S Indicated? Yes; Casts Negative LPF (Negative); Crystals Negative HPF (Negative); Epithelial Cells Rare HPF (Negative); Mucus Negative (Negative)
[2023-04-13 04:43] LABS: ALT 22 U/L (14-59); AST 10 U/L (15-37); Albumin 3.9 g/dL (3.4-5.0); Alkaline Phosphatase 55 U/L (46-116); Anion Gap 9.1 mmol/L (3-11); BUN 10 mg/dL (7-18); Bilirubin, Total 0.3 mg/dL (0.2-1.0); CO2 25.9 mmol/L (21.0-32.0); CREATININE 0.8 mg/dL (0.55-1.02); Calcium 9.2 mg/dL (8.5-10.1); Chloride 104 mmol/L (98-107); Estimated GFR 99.71 (mL/min/1.73m2); Glucose 92 mg/dL (74-106); Potassium 3.5 mmol/L (3.5-5.1); Sodium 139 mmol/L (136-145); Total Protein 7.4 g/dL (6.4-8.2)
[2023-04-13] MEDS: ACETAMINOPHEN 1,000 MG/100 ML BTL 400 MG IVPB (04:58)
[2023-04-13 05:00] VITALS: BP 104/62; PULSE 74; RESP 18; O2SAT 99
[2023-04-13 05:32] VITALS: BP 125/71; PULSE 85; RESP 18; O2SAT 99
[2023-04-13] MEDS: Omnipaque 350 MG/ML 100 ML BTL IJ ×2 (05:34→06:29)
[2023-04-13] MEDS: Normal Saline - Diluent 50 ML VIAL IJ ×2 (05:34→06:29)
[2023-04-13] MEDS: Normal Saline Flush 10 ML SYR IVP (05:36)
--- NOTE | 2023-04-13 05:42 | DI.VRAD_ITS ---
PROCEDURE INFORMATION: Exam: XR Chest Exam date and time: 04/13/2023 5:12 AM Age: 32 years old Clinical indication: Cough; Additional info: Productive cough TECHNIQUE: Imaging protocol: Radiologic exam of the chest. Views: 2 views. COMPARISON: CT CHEST PE CTA 05/19/2022 4:15 AM FINDINGS: Lungs: No focal consolidation seen. Pleural spaces: No large pleural effusion seen. Heart/Mediastinum: No cardiomegaly. Bones/joints: Grossly unremarkable. IMPRESSION: No acute findings to explain reported symptoms. Dictated and Authenticated by: Rosalind Banks MD. Ordering:BRIGID Anne MD
--- NOTE | 2023-04-13 05:45 | DI.VRAD_ITS ---
PROCEDURE INFORMATION: Exam: CT Abdomen And Pelvis With Contrast Exam date and time: 04/13/2023 5:22 AM Age: 32 years old Clinical indication: Abdominal pain; Additional info: Lower abd pain, h/o ovarian cysts and kidney stones TECHNIQUE: Imaging protocol: Computed tomography of the abdomen and pelvis with contrast. Contrast material: OMNI 350; Contrast volume: 100 ml; Contrast route: INTRAVENOUS (IV); COMPARISON: CT ABD PELVIS WO CONTRAST 04/27/2017 8:20 AM FINDINGS: Liver: Low attenuation lesions in the liver too small to accurately characterize on CT. Gallbladder and bile ducts: No radiodense gallbladder calculi seen. Pancreas: No CT evidence for acute pancreatitis. Spleen: No splenomegaly. Adrenal glands: No mass. Kidneys and ureters: Small nonobstructing bilateral renal calculi. No hydronephrosis. No ureteral calculi seen. Stomach and bowel: No intestinal obstruction is appreciated. Appendix: No evidence of appendicitis. Intraperitoneal space: No free air. Vasculature: No abdominal aortic aneurysm. Lymph nodes: Multiple mesenteric lymph nodes, nonspecific. Urinary bladder: No bladder calculi seen. Reproductive: Central hypodensity in the uterus, likely secretory phase endometrium. Small low-density foci in the ovaries attributed to physiologic change/follicles. Small left ovarian corpus luteum cyst. Bones/joints: No pertinent acute abnormality seen. Soft tissues: Tiny fat containing umbilical hernia. IMPRESSION: 1. No obstructive uropathy. 2. Nonacute findings as outlined above. Dictated and Authenticated by: Rosalind Banks MD. Ordering:BRIGID Anne MD
--- NOTE | 2023-04-13 05:45 | DI.CT_ITS ---
Exam(s) CT CHEST PE CTA EXAM: CT CHEST PE CTA CLINICAL HISTORY: back pain,chest pain, hx of DVT. TECHNIQUE: Imaging Protocol: Axial CT angiography was performed with multi-slice acquisition and mu lti-planar reconstructions as well as axial, coronal and sagittal MIP reconstructions. CONTRAST MATERIAL: Intravenous: Omnipaque 350 Contrast volume:80 ml COMPARISON: CT CT ABDOMEN PELVIS W from 04/13/2023 FINDINGS: Thyroid: Right-sided nodule. Previously evaluated 28 July 2022. Pulmonary Arteries: No evidence of filling defect to suggest pulmonary emboli. Tracheobronchial tree: Patent where visualized. Mediastinum and Cecy: No dominant adenopathy or fluid collection. Pulmonary parenchyma: No consolidation or dominant measurable mass. Pleura: No effusion or pneumothorax. Heart: The heart is not dilated. No coronary artery calcifications are seen. Aorta: Thoracic aorta non-dilated. No aneurysm. No dissection. Upper abdomen: Tiny hiatal hernia. Bones: Unremarkable for age. Tubes, Catheters, and Lines: None IMPRESSION: No evidence of pulmonary embolism or other acute abnormality.. RADIATION DOSE DELIVERED: Total DLP DATA REPOSITORY: All CT scans at this facility are submitted to the National Radiology Data Registry (NRDR) Dose Index Registry (DIR) with the [employer] ([employer]). RADIATION OPTIMIZATION: All CT scans at this facility use at least one of these dose optimization te chniques: automated exposure control; mA and/or kV adjustment per patient size (includes targeted exa ms where dose is matched to clinical indication); or iterative reconstruction.
--- NOTE | 2023-04-13 06:34 | DI.VRAD_ITS ---
PROCEDURE INFORMATION: Exam: CTA Chest With Contrast Exam date and time: 04/13/2023 6:18 AM Age: 32 years old Clinical indication: Chest wall pain; Additional info: Chest pain, back pain, h/o dvt. Lower abd pain, h/o ovarian cysts and kidney stones TECHNIQUE: Imaging protocol: Computed tomographic angiography of the chest with contrast. Exam focused on the arteries. 3D rendering (Not supervised by radiologist): MIP and/or 3D reconstructed images were created by the technologist. Contrast material: OMNI 350; Contrast volume: 100 ml; Contrast route: INTRAVENOUS (IV); COMPARISON: CT CHEST PE CTA 05/19/2022 4:15 AM FINDINGS: Pulmonary arteries: No pulmonary embolus is appreciated. Aorta: No thoracic aortic aneurysm seen. Thyroid: Enlarged, nodular right thyroid. Follow-up advised. Lungs: No focal consolidation seen. Pleural spaces: No pleural effusion. Heart: No pericardial effusion. Lymph nodes: No acute abnormality seen. Diaphragm: Tiny hiatal hernia. Adrenal glands: Mild nodular left adrenal thickening. Bones/joints: No acute pertinent abnormality seen. Soft tissues: No acute pertinent abnormality seen. IMPRESSION: 1. No acute findings to explain reported symptoms. 2. Nonacute findings for which follow-up may be indicated, as outlined above. Dictated and Authenticated by: Rosalind Banks MD. Ordering:BRIGID Anne MD
[2023-04-13 07:06] VITALS: BP 117/72; PULSE 67; RESP 18; O2SAT 99
== END 2023-04-13 07:12 | disposition home or self-care (01) ==
PROVIDERS: Emergency Provider Emergency Medicine; PCP Nurse Practitioner Family
DX: M54.50 Low back pain, unspecified (principal); R10.9 Unspecified abdominal pain
CPT/HCPCS: 71275; 80053; 81025; 83690; 96361; 96374; 96375; 99285; 71046; 74177; 81003; 81015; 85025; 87086; J0131; J1885; J2405; J3490

== ENCOUNTER 2023-04-16 14:02 | Outpatient (REF) | payer OTHER, SELFPAY | END 2023-04-16 14:03 | disposition home or self-care (01) | LOC: LBN 14:02 | PROVIDERS: PCP Nurse Practitioner Family; Visit Provider Nurse Practitioner Family | DX: M54.9 Dorsalgia, unspecified (principal) | CPT/HCPCS: 87086 ==

== ENCOUNTER 2023-06-10 15:28 | Emergency (ER) | payer OTHER, SELFPAY ==
[2023-06-10 16:03] VITALS: BP 147/103; PULSE 78; RESP 18; TEMP 36.5; O2SAT 100
--- NOTE | 2023-06-10 17:43 | ED.GENADUL_ITS ---
HPI General Stated Complaint: GenMedical REY: 3 Date/Time Provider Initiated Documentation: 06/10/23 16:16. HPI Narrative: 32 year-old female presents to ED today by POV/ambulating with a chief complaint of covid-19 + test at home, here with her daughter who is also positive, having cough, sore throat, and now pain in L lower ribs with coughing with onset noted 4 days ago. Quality described as generalized cough, no radiation to chest pain, abdominal pain, profound lethargy, respiratory distress, intractable nausea/vomiting. Severity is described as moderate. Palliating factors include nothing specific. Provoking factors include nothing specific. Events leading up to the incident/Associated Symptoms: Patient is vaccinated with single dose J&J only, has history of DVT. Patient not anticoagulated. Related Data Home Medications Medication Instructions Recorded Confirmed albuterol sulfate 90 mcg/actuation 2 puff inhalation Q4H PRN #8.5 05/29/22 06/10/23 aerosol inhaler (ProAir HFA) grams meclizine 25 mg tablet 25 mg PO BID PRN dizziness #10 tabs 06/19/22 06/10/23 cyclobenzaprine 10 mg tablet 10 mg PO TID PRN #20 tabs 07/20/22 06/10/23 ondansetron HCl 4 mg tablet 4 mg PO Q8H PRN nausea and 07/27/22 06/10/23 vomiting #30 tabs cholecalciferol (vitamin D3) 25 25 mcg PO DAILY 02/12/23 06/10/23 mcg (1,000 unit) tablet (Vitamin D3) magnesium 200 mg tablet 400 mg PO DAILY 02/12/23 06/10/23 ondansetron 4 mg disintegrating 4 mg PO BID-TID PRN nausea and 02/12/23 06/10/23 tablet vomiting #20 tabs citalopram 10 mg tablet 10 mg PO DAILY #60 tabs 03/12/23 06/10/23 alcaftadine 0.25 % eye drops 1 drp ophthalmic (eye) DAILY PRN 03/15/23 06/10/23 (Lastacaft Once Daily Relief) prednisone 20 mg tablet 10 - 60 mg (0.5 - 3 x 20 mg) PO 04/16/23 06/10/23 DAILY #30 tabs oxycodone-acetaminophen 5 mg-325 1 tab PO Q8H PRN pain #6 tabs 04/20/23 06/10/23 mg tablet (Percocet) norethindrone acetate 1.5 1 tab PO .COMPLEX #63 tabs 04/24/23 06/10/23 mg-ethinyl estradiol 30 mcg tablet ibuprofen 800 mg tablet 800 mg PO PRN PRN 06/10/23 06/10/23 Previous Rx's Medication Instructions Recorded albuterol sulfate 90 mcg/actuation 2 puff inhalation Q4H PRN #8.5 05/29/22 aerosol inhaler (ProAir HFA) grams meclizine 25 mg tablet 25 mg PO BID PRN dizziness #10 tabs 06/19/22 cyclobenzaprine 10 mg tablet 10 mg PO TID PRN #20 tabs 07/20/22 ondansetron HCl 4 mg tablet 4 mg PO Q8H PRN nausea and 07/27/22 vomiting #30 tabs ondansetron 4 mg disintegrating 4 mg PO BID-TID PRN nausea and 02/12/23 tablet vomiting #20 tabs citalopram 10 mg tablet 10 mg PO DAILY #60 tabs 03/12/23 prednisone 20 mg tablet 10 - 60 mg (0.5 - 3 x 20 mg) PO 04/16/23 DAILY #30 tabs oxycodone-acetaminophen 5 mg-325 1 tab PO Q8H PRN pain #6 tabs 04/20/23 mg tablet (Percocet) norethindrone acetate 1.5 1 tab PO .COMPLEX #63 tabs 04/24/23 mg-ethinyl estradiol 30 mcg tablet Allergies Allergy/AdvReac Type Severity Reaction Status Date / Time latex Allergy Severe Hives Verified 06/10/23 17:55 Penicillins Allergy Severe Anaphylaxsi Verified 06/10/23 17:55 s shellfish derived Allergy Severe Anaphylaxsi Verified 06/10/23 17:55 s Sulfa (Sulfonamide Allergy Severe Hives Verified 06/10/23 17:55 Antibiotics) nitrofurantoin Allergy Intermediate Skin Rash, Verified 06/10/23 17:55 anxiety, dry mouth Review of Systems All systems reviewed & are unremarkable except as noted in HPI and below PFSH All Active Problems (Updated 06/10/23 @ 21:13 by CAROLINA Saez) COVID-19 (Acute) Dysmenorrhea (Acute) 2014 Nl pelvic u/s. Nl endometrial bx. Lumbar back pain with radiculopathy affecting lower extremity (Acute) LLQ pain (Acute) Cough (Acute) Back pain (Acute) Impacted cerumen, left ear (Acute) Renal colic (Chronic) Vitamin D deficiency (Chronic 07/05/17) Hx of allergy to shellfish (Chronic 07/05/17) Migraine (Chronic) Night sweats (Acute) Medical History Abnormal auditory perception (05/21/14) Adrenal benign tumor [address] scan during w/u for elevated DHEAs. [place] [facility] [place] Test and 17OHP[place] Expectant management. Anxiety Panic attacks. Somatic complaints. Bilateral carpal tunnel syndrome Calculus of kidney Dermatitis (07/17/16) Drug-induced nausea and vomiting Dysmenorrhea 2014 Nl pelvic u/s. Nl endometrial bx. Elevated dehydroepiandrosterone sulfate level (11/06/13) Pt had eval for facial hirsuitism. Nl testosterone and 17-OH-P4. 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 Benign mass on adrenal. Neg pheochromocytoma w/u. 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 Obstructive sleep apnea Dx 2016 [place] [facility] Used CPAP for approx. 1 year - has not used for 1 yr. as of 01/06/19 Pelvic pain 2013 Episodic. GI w/u neg. 2014 [employer] Strategy [employer] w/u neg. 11/2015 recurrence of sx after 08/2015. PMDD (premenstrual dysphoric disorder) Thyroid cyst Thyroid nodule Unspecified hemorrhoids (07/05/17) Vertigo Surgical History Appendectomy Colonoscopy - MAC 06/17/14 [facility] [place]GD - MAC 06/17/14- [facility] Endometrial Biopsy 08/18/14 [facility] H/O surgical procedure a. appendectomy b. colonoscopy c. endometrial biopsy d. tonsillectomy e. EGD - with MAC History of appendectomy History of esophagogastroduodenoscopy History of gynecological procedure Status post tonsillectomy Surgery 08/25-kidney stone Tonsillectomy Family History Mother Depression Hyperlipidemia Colon cancer Multiple sclerosis Father Diabetes Essential hypertension Heart disease Hyperlipidemia Maternal Grandfather Diabetes Hyperlipidemia Thyroid cancer Prostate cancer Liver cancer Paternal Grandfather Heart disease Asthma Maternal Grandmother , 73 Essential hypertension Hyperlipidemia Myeloma Bone cancer Paternal Grandmother , 79 Essential hypertension Myeloma Bone cancer Brother Substance abuse Son No problems noted. Son No problems noted. Daughter No problems noted. Social History Smoking/Tobacco Use Status: Never Second Hand Exposure: No Smoking risk assessment performed?: Yes Alcohol Intake: never Drug use: Never Substance use type: does not use Counseling given: No Counseling provided: none Caregiver/Support person: No Household members: spouse and children Housing: house Communication Needs: None Do you need help understanding health information?: Never Pets and animals: Yes Pets and animals: other Details: Chickens Sexually active: Yes Do you think of yourself as: straight/heterosexual Current gender identity: female What is your relationship status?: How often do you talk on the phone with friends or family?: three or more times per week How often do you get together with friends or relatives?: once per week How often do you attend muslim or taoism services?: 1-3 times per year Do you belong to any clubs or organized social groups?: no Panel score (0-1 are the most socially isolated patients): 2 What type of physical activity do you participate in: running Duration: 15-30 minutes/day Frequency: 3-4 times per week Vianney/Holiness: No preference Special vianney needs: No Seatbelt use: always Helmet use: Yes Helmet use: always Drive intox or ride w/intox batch mixing truck driver: No Do you feel safe at home: Yes Do you feel safe in your relationship?: Yes Female Reproductive History Menstrual control method: other History History 4 Para 3 Hx # Term Pregnancies Multiple births Hx # Pregnancies Ectopic pregnancies AB induced Hx Number of Living Children AB spontaneous 1 Exam Narrative Exam Narrative: GENERAL APPEARANCE: Well-nourished, non-toxic, awake and alert, atraumatic, no acute distress. SKIN: Warm, pink, dry, intact, without rashes/lesions/ulcerations. HEAD: Normocephalic, atraumatic, normal hair distribution for gender/age. EYES: Pupils PERRLA, EOMs intact without nystagmus, normal conjunctiva, no exudates on lids/lashes. ENT: Nares patent, no circumoral cyanosis, no facial swelling NECK: Supple, trachea midline, painless cervical ROM. LUNGS/CHEST: Lungs CTA bilaterally- no rhonchi/rales/wheezes diffusely, non- labored respirations, normal A/P diameter, symmetrical expansion, no chest wall deformity, mild TTP L lower ribs axillary without crepitus HEART (CV/PV): Regular rate and rhythm without murmur, no peripheral edema, no JVD. ABDOMEN: Soft, non-distended, no guarding, no tenderness. MSK: Normal ROM, no swelling/deformity to bilateral UEs or LEs, moving all extremities without weakness, no cyanosis, spine midline without tenderness, normal curvature, no unilateral leg swelling NEURO: Mental Status AAOx4 - alert to person, place, time, events No facial droop, no forehead involvement. Motor: No focal weakness - strength 5/5 in bilateral UEs and LEs, proximal and distal, symmetric. Sensory: sensation intact to light touch globally. Gait normal: patient ambulated without ataxia into ED room. PSYCH: euthymic, cooperative, pleasant, appropriate speech Course Vital Signs Vital signs: Vital Signs Temperature 36.5 C 06/10/23 16:03 Pulse 78 06/10/23 16:03 Respiratory Rate 18 06/10/23 16:03 Blood Pressure 147/103 H 06/10/23 16:03 Pulse Oximetry 100 06/10/23 16:03 Temperature 36.5 C 06/10/23 16:03 Pulse 78 06/10/23 16:03 Respiratory Rate 18 06/10/23 16:03 Blood Pressure 147/103 H 06/10/23 16:03 Pulse Oximetry 100 06/10/23 16:03 Medical Decision Making This dictation utilizes [id number] dictation software and may contain unedited grammatical errors. 32 y/o F presents to ED today with a chief complaint of Covid-19, cough, L lower rib pain x4 days. Patient has history DVT, vaccianted for Covid-19 with one-shot J&J. Patients' medical history: DVT. Family and social history: daughter also has covid. Pertinent exam findings / vital signs include lung CTA, nontoxic vitals, no hypoxia. Differential / pathologies of concern include COVID-19, viral syndrome, hypoxemic respiratory failure, pulmonary embolism. Diagnostic studies of: -CBC, CMP, D-dimer, troponin, BNP, EKG, CTA chest. -D-dimer 937, history of DVT did perform CTA -CTA negative -trop I / bnp neg -CBC benign -no major electrolyte abnormalities Interventions of: -none, reassurance. ED Course/Assessment/Plan: 32-year-old female presents with viral syndrome of COVID-19, reports chest pain that is pleuritic in the axillary areas of her left lung, D-dimer is elevated but years criteria negative, but patient has history of DVT. CTA negative. Discharged home. Incidental thyroid nodule which patient is aware of. Findings not consistent with hypoxemic respiratory failure pulmonary embolism, the patient has COVID-19 and has likely mild to moderate course of illness but is on day 4 and is vaccinated without significant respiratory distress, drug abuse counselor ed on the likely source for rib pain is musculoskeletal irritation from coughing significantly. Disposition of Covid-19. Patient verbalized understanding of the plan and return to ED criteria and engaged in shared decision making. Medical Records Medical records reviewed: Yes I reviewed the patient's medical records. Imaging Data Radiologic Study: Imaging: CT Scan Radiologist's impression: Exam: CTA Chest With Contrast Exam date and time: 06/10/2023 7:59 PM Age: 32 years old Clinical indication: Condition or disease; Other: Covid +; Patient HX: Elevated d dimer, covid, HX dvt TECHNIQUE: Imaging protocol: Computed tomographic angiography of the chest with contrast. Exam focused on the arteries. 3D rendering (Not supervised by radiologist): MIP and/or 3D reconstructed images were created by the technologist. COMPARISON: CT CHEST PE CTA 04/13/2023 6:18 AM FINDINGS: Pulmonary arteries: Pulmonary artery is well opacified. No embolism. Aorta: Thoracic aorta is unremarkable in course and caliber. Thyroid: There is a prominent low-attenuation focus which appears to be emanating from the right thyroid lobe. 2.8 x 1.7 cm. Series 5: Image 4. Likely a thyroid cyst. Recommend clinical correlation. There are previous thyroid ultrasounds noted in patient's imaging record. Lungs: Lungs are clear bilaterally. No infiltrates. No edema. Pleural spaces: Minimal nonspecific left pleural effusion. Heart: Normal heart size. No pericardial effusion. No coronary artery atherosclerotic calcium. Lymph nodes: Unremarkable. No enlarged lymph nodes. Bones/joints: Unremarkable. No acute fracture. Soft tissues: Unremarkable. IMPRESSION: 1. No pulmonary arterial embolism. 2. Clear lungs. 3. Minimal nonspecific left pleural effusion. 4. Right thyroid cystic lesion noted. Dictated and Authenticated by: Eliazar Pascual MD. Ordering:ANJALI Fraga MD Lab Data Lab results reviewed: Yes I reviewed the patient's lab results. Labs: Laboratory Tests Range/Units 06/10/23 06/10/23 18:20 18:32 WBC (4.4-10.8) 10^3/uL 4.28 L RBC (3.93-5.22) 10^6/uL 4.32 Hgb (11.2-15.7) g/dL 13.8 Hct (36.0-46.0) % 40.9 MCV (80-95) fL 95 MCH (27.0-33.0) pg 31.9 MCHC (32.0-36.0) % 33.7 RDW (11.7-14.6) % 11.9 Plt Count (130-400) 10^3/uL 255 MPV (8.0-11.0) fL 10.6 Immature Gran % 0.5 Neutrophils % 50.9 Lymphocytes % 34.1 Monocytes % 13.3 Eosinophils % 0.5 Basophils % 0.7 Nucleated RBC % (0.0-0.3) % 0.0 Absolute Neutrophils (1.2-6.7) 10^3/uL 2.18 Absolute Lymphocytes (1.2-3.4) 10^3/uL 1.46 Absolute Monocytes (0.1-0.8) 10^3/uL 0.57 Absolute Eosinophils (0.0-0.7) 10^3/uL 0.02 Absolute Basophils (0.0-0.2) 10^3/uL 0.03 D-Dimer (<500) ng/mlFEU 937 H Sodium (136-145) mmol/L 139 Potassium (3.5-5.1) mmol/L 4.3 Chloride (98-107) mmol/L 103 Carbon Dioxide (21.0-32.0) mmol/L 27.8 Anion Gap (3-11) mmol/L 8.2 BUN (7-18) mg/dL 10 Creatinine (0.55-1.02) mg/dL 0.8 Est GFR (CKD-EPI 2020) (mL/min/1.73m2) 99.71 Glucose (74-106) mg/dL 91 Calcium (8.5-10.1) mg/dL 8.9 Magnesium (1.8-2.4) mg/dL 1.9 Total Bilirubin (0.2-1.0) mg/dL 0.2 AST (15-37) U/L 22 ALT (14-59) U/L 35 Alkaline Phosphatase (46-116) U/L 52 Troponin I (<or=60) ng/L < 50 NT-Pro-B Natriuret Pep (<300) pg/mL 21 Total Protein (6.4-8.2) g/dL 7.8 Albumin (3.4-5.0) g/dL 4.1 Serum HCG, Qual Negative Discharge Plan Disposition Patient Disposition: Home Condition: Stable Discharge Details Clinical Impression: COVID-19 Primary Care Provider: Serafin Guidry ED Provider: Flakito Kamara Home Meds and New Rx's Prescriptions: Continued meclizine 25 mg tablet 25 mg PO BID PRN (Reason: dizziness) Qty: 10 0RF Patient Comments: PT states not taking 02/12/23 ML Rx Instructions: may take 1 tab every 12 hours as needed for nausea/vertigo ondansetron HCl 4 mg tablet 4 mg PO Q8H PRN (Reason: nausea and vomiting) Qty: 30 0RF Lastacaft Once Daily Relief 0.25 % drops 1 drp ophthalmic (eye) DAILY PRN citalopram 10 mg tablet 10 mg PO DAILY Qty: 60 0RF norethindrone ac-eth estradiol 1.5-30 mg-mcg tablet 1 tab PO .COMPLEX Qty: 63 4RF Rx Instructions: 1 tab orally take active pill daily for 3months. then stop for one week and restart daily pill for 3 pill packs.; prednisone 20 mg tablet 10 - 60 mg PO DAILY Qty: 30 0RF Rx Instructions: Take 3 tablets for 5 days then 2 tablets for 4 days then 1 tablet for 3 days and half a tablet for 3 days albuterol sulfate [ProAir HFA] 90 mcg/actuation HFA aerosol inhaler 2 puff Inhalation Q4H PRN Qty: 8.5 3RF oxycodone-acetaminophen [Percocet] 5-325 mg tablet 1 tab PO Q8H MDD 3 PRN (Reason: pain) Qty: 6 0RF cyclobenzaprine 10 mg tablet 10 mg PO TID PRNQty: 20 0RF Patient Comments: Pt not taking 02/12/23 ML magnesium 200 mg Tablet 400 mg PO DAILY cholecalciferol (vitamin D3) [Vitamin D3] 25 mcg (1,000 unit) Tablet 25 mcg PO DAILY ondansetron 4 mg tablet,disintegrating 4 mg PO BID-TID PRN (Reason: nausea and vomiting) Qty: 20 0RF ibuprofen 800 mg tablet 800 mg PO PRN PRN Discharge Instructions Instructions: COVID-19 (Coronavirus Disease 2019) (ED) Additional Instructions: You were seen in the emergency department for your COVID-19 illness, you have no signs of hypoxia, mildly elevated D-dimer and with your history of DVT we did perform a CTA of the chest which showed no pulmonary embolism, please continue to take Tylenol and ibuprofen as needed and use your at home dose of inhaler. Please return for any further respiratory distress, I do think that your chest pain is related to musculoskeletal irritation from your illness rather than cardiac or pulmonary causes. There is a right thyroid nodule that was seen that you should seek an ultrasound of by outpatient study ordered by your primary care provider this is an incidental finding and not likely to cause any of your active current complaints. Referrals: Serafin Guidry [employer] [Primary Care Provider] - Discharge Data Discharge Date/Time-TO BE ENTERED AT DEPARTURE: 06/10/23 21:25
--- NOTE | 2023-06-10 17:45 | RT.EKG_ITS ---
APPROVED REPORT Exam: Resting ECG Reason for Exam: chest pain Patient Location: E HR:74 bpm ECG Measurements Heart Rate 74 AXIS IL 129 P 46 QRSd 87 QRS 49 QT 402 T 26 QTc 446 Conclusion Sinus rhythm...normal P axis, V-rate 60- 99
[2023-06-10 17:53] VITALS: BP 147/103; PULSE 78; RESP 18; TEMP 36.5; O2SAT 100
[2023-06-10 18:34] LABS: Abs Immature Grans 0.02 10^3/uL (0.0-0.06); Absolute Basophil Count 0.03 10^3/uL (0.0-0.2); Absolute Eosinophil Count 0.02 10^3/uL (0.0-0.7); Absolute Lymphocyte Count 1.46 10^3/uL (1.2-3.4); Absolute Monocyte Count 0.57 10^3/uL (0.1-0.8); Absolute Neutrophil Count 2.18 10^3/uL (1.2-6.7); Basophils % 0.7; Eosinophils % 0.5; HCT 40.9 % (36.0-46.0); HGB 13.8 g/dL (11.2-15.7); Immature Grans % 0.5; Lymphocytes % 34.1; MCH 31.9 pg (27.0-33.0); MCHC 33.7 % (32.0-36.0); MCV 95 fL (80-95); MPV 10.6 fL (8.0-11.0); Monocytes % 13.3; Neutrophils % 50.9; Platelet Count 255 10^3/uL (130-400); RBC 4.32 10^6/uL (3.93-5.22); RDW 11.9 % (11.7-14.6); RDW-SD 41.9 fL; WBC 4.28 10^3/uL (4.4-10.8)
[2023-06-10 18:53] LABS: ALT 35 U/L (14-59); AST 22 U/L (15-37); Albumin 4.1 g/dL (3.4-5.0); Alkaline Phosphatase 52 U/L (46-116); Anion Gap 8.2 mmol/L (3-11); BUN 10 mg/dL (7-18); Bilirubin, Total 0.2 mg/dL (0.2-1.0); CO2 27.8 mmol/L (21.0-32.0); CREATININE 0.8 mg/dL (0.55-1.02); Calcium 8.9 mg/dL (8.5-10.1); Chloride 103 mmol/L (98-107); Estimated GFR 99.71 (mL/min/1.73m2); Glucose 91 mg/dL (74-106); Magnesium 1.9 mg/dL (1.8-2.4); NT-proBNP 21 pg/mL (<300); Potassium 4.3 mmol/L (3.5-5.1); Sodium 139 mmol/L (136-145); Total Protein 7.8 g/dL (6.4-8.2); Troponin I < 50 ng/L (<or=60)
[2023-06-10 19:13] LABS: D-Dimer 937 ng/mlFEU (<500)
--- NOTE | 2023-06-10 19:15 | DI.CT_ITS ---
Exam(s) CT CHEST PE CTA EXAM: CT CHEST PE CTA CLINICAL HISTORY: elevated d-dimer, covid, hx dvt. TECHNIQUE: Imaging Protocol: Axial CT angiography was performed with multi-slice acquisition and mu lti-planar reconstructions as well as axial, coronal and sagittal MIP reconstructions. CONTRAST MATERIAL: Intravenous: Omnipaque 350 Contrast volume:100 ml COMPARISON: CT CT CHEST PE CTA from 04/13/2023 FINDINGS: Right thyroid nodule again noted, unchanged. Pulmonary Arteries: No evidence of filling defect to suggest pulmonary emboli. Tracheobronchial tree: Patent where visualized. Mediastinum and Cecy: No dominant adenopathy or fluid collection. Pulmonary parenchyma: No consolidation or dominant measurable mass. Pleura: No effusion or pneumothorax. Heart: The heart is not dilated. No coronary artery calcifications are seen. Aorta: Thoracic aorta non-dilated. No aneurysm. No dissection. Upper abdomen: Unremarkable. Bones: Unremarkable for age. Tubes, Catheters, and Lines: None Soft tissues: Unremarkable. IMPRESSION: No evidence of pulmonary embolism or other acute abnormality in the chest.. RADIATION DOSE DELIVERED: Total DLP DATA REPOSITORY: All CT scans at this facility are submitted to the National Radiology Data Registry (NRDR) Dose Index Registry (DIR) with the [employer] (ACR). RADIATION OPTIMIZATION: All CT scans at this facility use at least one of these dose optimization te chniques: automated exposure control; mA and/or kV adjustment per patient size (includes targeted exa ms where dose is matched to clinical indication); or iterative reconstruction.
[2023-06-10 19:28] VITALS: BP 138/79; PULSE 87; RESP 19; TEMP 36.9; O2SAT 97
[2023-06-10] MEDS: Omnipaque 350 MG/ML 100 ML BTL IJ (19:55)
[2023-06-10] MEDS: Normal Saline - Diluent 50 ML VIAL IJ (19:56)
[2023-06-10 20:22] LABS: HCG Qual (Serum) Negative
--- NOTE | 2023-06-10 21:14 | DI.VRAD_ITS ---
PROCEDURE INFORMATION: Exam: CTA Chest With Contrast Exam date and time: 06/10/2023 7:59 PM Age: 32 years old Clinical indication: Condition or disease; Other: Covid +; Patient HX: Elevated d dimer, covid, HX dvt TECHNIQUE: Imaging protocol: Computed tomographic angiography of the chest with contrast. Exam focused on the arteries. 3D rendering (Not supervised by radiologist): MIP and/or 3D reconstructed images were created by the technologist. COMPARISON: CT CHEST PE CTA 04/13/2023 6:18 AM FINDINGS: Pulmonary arteries: Pulmonary artery is well opacified. No embolism. Aorta: Thoracic aorta is unremarkable in course and caliber. Thyroid: There is a prominent low-attenuation focus which appears to be emanating from the right thyroid lobe. 2.8 x 1.7 cm. Series 5: Image 4. Likely a thyroid cyst. Recommend clinical correlation. There are previous thyroid ultrasounds noted in patient's imaging record. Lungs: Lungs are clear bilaterally. No infiltrates. No edema. Pleural spaces: Minimal nonspecific left pleural effusion. Heart: Normal heart size. No pericardial effusion. No coronary artery atherosclerotic calcium. Lymph nodes: Unremarkable. No enlarged lymph nodes. Bones/joints: Unremarkable. No acute fracture. Soft tissues: Unremarkable. IMPRESSION: 1. No pulmonary arterial embolism. 2. Clear lungs. 3. Minimal nonspecific left pleural effusion. 4. Right thyroid cystic lesion noted. Dictated and Authenticated by: Eliazar Pascual MD. Ordering:ANJALI Fraga MD
== END 2023-06-10 21:25 | disposition home or self-care (01) ==
PROVIDERS: Emergency Provider Physician Assistant; PCP Nurse Practitioner Family
DX: U07.1 COVID-19 (principal); R05.1 Acute cough; R10.32 Left lower quadrant pain; R07.0 Pain in throat; Z86.718 Personal history of other venous thrombosis and embolism; E04.1 Nontoxic single thyroid nodule
CPT/HCPCS: 36415; 71275; 80053; 93005; 99284; 83735; 83880; 84484; 84703; 85025; 85379; 93010; 99283; J3490

== ENCOUNTER 2023-06-14 18:18 | Outpatient (CLI) | payer OTHER, SELFPAY ==
[2023-06-14 16:28] LABS: Anion Gap 9.6 mmol/L (3-11); BUN 12 mg/dL (7-18); CO2 26.4 mmol/L (21.0-32.0); CREATININE 0.7 mg/dL (0.55-1.02); Calcium 9.1 mg/dL (8.5-10.1); Chloride 104 mmol/L (98-107); Estimated GFR 117.04 (mL/min/1.73m2); Glucose 88 mg/dL (74-106); Magnesium 2.1 mg/dL (1.8-2.4); Potassium 4.4 mmol/L (3.5-5.1); Sodium 140 mmol/L (136-145)
[2023-06-14 16:53] LABS: Vitamin D 25 Total 25.1 ng/mL (30-100)
== END 2023-06-14 18:19 | disposition home or self-care (01) ==
LOC: LBO 18:19
PROVIDERS: PCP Nurse Practitioner Family; Visit Provider Nurse Practitioner
DX: E83.42 Hypomagnesemia (principal); E55.9 Vitamin D deficiency, unspecified
CPT/HCPCS: 36415; 80048; 82306; 83735

== ENCOUNTER 2023-12-17 12:37 | Outpatient (CLI) | payer SELFPAY ==
[2023-12-17 13:07] LABS: Calculated LDL 125 mg/dL (<100); Cholesterol 178 mg/dL (<200); HDL Cholesterol 46 mg/dL (40-60); TSH (W/Ref FT4) 1.05 uIU/mL (0.36-3.74); Triglyceride 38 mg/dL (<150); Vitamin D 25 Total 30.1 ng/mL (30-100)
== END 2023-12-17 12:38 | disposition home or self-care (01) ==
LOC: LBO 12:38
PROVIDERS: PCP Nurse Practitioner Family; Visit Provider Nurse Practitioner Family
DX: Z13.1 Encounter for screening for diabetes mellitus (principal); Z13.220 Encounter for screening for lipoid disorders; E55.9 Vitamin D deficiency, unspecified; Z13.29 Encounter for screening for other suspected endocrine disorder
CPT/HCPCS: 36415; 80061; 82306; 83036; 84443